=== PATIENT | female | born 1955 | race American Indian/Alaskan Native ===

== ENCOUNTER 2018-12-26 23:03 | Inpatient (IN) | payer MEDICAID, OTHER ==
[2018-12-26 23:16] VITALS: BMI 33.7
[2018-12-26] MEDS ORDERED: Labetalol 500 MG in Sodium Chloride 0.9% 400 ML IV PRN (23:17)
[2018-12-26] MEDS ORDERED: Labetalol 5mg/ml (4ml) IV ONE (23:17)
[2018-12-26] MEDS ORDERED: Labetalol 5mg/ml (4ml) ONE (23:19)
[2018-12-26] MEDS: Nicardipine 20 MG/200 ML 20 MG/200 ML BAG IV PRN (23:42)
--- NOTE | 2018-12-26 23:45 | ED PDOC ---
Arrival/HPI - General Chief Complaint: Weakness/Neurological Deficit Time Seen by Provider: 12/26/18 23:05 Historian: Patient, Family (daughter) - History of Present Illness Narrative History of Present Illness (Text): 12/26/18 23:42 A 63 year old female, whose past medical history includes hypertension (non- compliant with medications for the past year), presents to the emergency department complaining of slurred speech starting 3 days ago. Per daughter, patient sounds like "drunk when talking." Patient denies any headache, chest pain, shortness of breath, any extremity weakness or any other complaints at this time. Past Medical History - Provider Review Nursing Documentation Reviewed: Yes - Infectious Disease Hx of Infectious Diseases: None - Cardiac Hx Hypertension: Yes - Psychiatric Hx Substance Use: No - Anesthesia Hx Anesthesia: No Family/Social History - Physician Review Nursing Documentation Reviewed: Yes Family/Social History: No Known Family HX Smoking Status: Never Smoked Hx Alcohol Use: No Hx Substance Use: No Allergies/Home Meds Allergies/Adverse Reactions: Allergies No Known Allergies Allergy (Verified 12/26/18 23:16) Home Medications: Home Meds Medication Instructions Recorded Confirmed No Known Home Med 12/26/18 12/26/18 Review of Systems - Physician Review All systems were reviewed & negative as marked: Yes - Review of Systems Respiratory: absent: SOB Cardiovascular: absent: Chest Pain Neurological: Speech Changes (slurred, per daughter patient sounds "drunk when talking."). absent: Headache, Other (no arm/leg weakness) Physical Exam Vital Signs Reviewed: Yes Vital Signs Temp Pulse Resp BP Pulse Ox 12/26/18 23:29 84 208/101 H 12/26/18 23:16 98.5 F 117 H 18 259/152 H 97 Temperature: Afebrile Blood Pressure: Hypertensive Pulse: Tachycardic Respiratory Rate: Normal Appearance: Positive for: Well-Appearing, Non-Toxic, Comfortable Pain Distress: None Mental Status: Positive for: Alert and Oriented X 3 Finger Stick Blood Glucose: 122 - Systems Exam Head: Present: Atraumatic, Normocephalic Pupils: Present: PERRL Extroacular Muscles: Present: EOMI Conjunctiva: Present: Normal Mouth: Present: Moist Mucous Membranes Neck: Present: Normal Range of Motion Respiratory/Chest: Present: Clear to Auscultation, Good Air Exchange. No: Respiratory Distress, Accessory Muscle Use Cardiovascular: Present: Tachycardic Abdomen: No: Tenderness, Distention, Peritoneal Signs Back: Present: Normal Inspection Upper Extremity: Present: Normal Inspection. No: Cyanosis, Edema Lower Extremity: Present: Normal Inspection. No: Edema Neurological: Present: GCS=15, CN II-XII Intact, Speech Normal, Motor Func Grossly Intact. No: Other (no motor/focal/sensory deficits) Skin: Present: Warm, Dry, Normal Color. No: Rashes Psychiatric: Present: Alert, Oriented x 3, Normal Insight, Normal Concentration Medical Decision Making ED Course and Treatment: 12/26/18 23:46 Impression: 63 year old female with slurred speech. Plan: -- EKG -- Head CT -- Chest X-ray -- Labs -- Nitroglycerin -- Trandate -- Reassess and disposition Prior Visits: Notes and results from previous visits were reviewed. Progress Notes: 12/27/18 00:58 Chest X-ray shows mass to right lower lobe. 12/27/18 01:[address] banerjee doctor and medical practice administrator. Patient to be admitted to ICU. 12/27/2018 01:[address] IMPRESSION: 1. Age-appropriate cerebellar and cerebral atrophy. 2. Mild chronic microvascular disease. 3. No evidence of acute intracranial pathology. Dictator: Gordon Adkins MD EKG: Ordered, reviewed, and independently interpreted the EKG. Rate : 88 BPM Rhythm : NSR Interpretation : PACs, LVH. Comparison : No previous EKG for comparison. - RAD Interpretation Radiology Orders: 12/26/18 23:16 HEAD W/O CONTRAST [CT] Stat CHEST PORTABLE [RAD] Stat - Medication Orders Current Medication Orders: Nicardipine HCl (Cardene Iv Premix) 20 mg in 200 mls @ 50 mls/hr IV .Q4H PRN; Protocol PRN Reason: TITRATE PER ORDER Discontinued Medications Labetalol HCl (Trandate) 20 mg IV ONCE ONE Stop: 12/26/18 23:18 Last Admin: 12/26/18 23:18 Dose: 20 mg eMAR Start Stop Document 12/26/18 23:18 AD (Rec: 12/26/18 23:30 AD [facility] [id number]) Intravenous Solution Start Date 12/26/18 Start Time 23:18 NIHSS Scale ([place]) Time Performed: 23:15 - How Severe is the Stoke Baseline Level of Consciousness: 0=Alert LOC to Questions: 0=Both comments correct LOC to commands: 0=Obeys both correctly Best Gaze: 0=Normal Visual: 0=No visual loss Facial: 0=Normal Motor Arm - Left: 0=No drift Motor Arm - Right: 0=No drift Motor Leg - Left: 0=No drift Motor Leg - Right: 0=No drift Limb Ataxia: 0=Absent Sensory: 0=Normal Best Language: 0=No aphasia Dysarthia: 0=Normal articulation Extinction & Inattention (Neglect): 0=Normal, no object Score: 0 Risk Level: No Stroke Risk - Scribe Statement The provider has reviewed the documentation as recorded by the Louise Quevedo Provider Scribe Attestation: All medical record entries made by the Rileyibe were at my direction and personally dictated by me. I have reviewed the chart and agree that the record accurately reflects my personal performance of the history, physical exam, medical decision making, and the department course for this patient. I have also personally directed, reviewed, and agree with the discharge instructions and disposition. Disposition/Present on Arrival - Present on Arrival Any Indicators Present on Arrival: No History of DVT/PE: No History of Uncontrolled Diabetes: No Urinary Catheter: No History of Decub. Ulcer: No History Surgical Site Infection Following: None - Disposition Have Diagnosis and Disposition been Completed?: Yes Diagnosis: Hypertensive emergency Disposition: HOSPITALIZED Disposition Time: 01:43 Patient Plan: ICU Patient Problems: Current Active Problems Problem Status Onset Hypertensive emergency Acute Condition: STABLE
[2018-12-26 23:59] LABS: HEMOGLOBIN 14.2 g/dL (12.0-16.0); MEAN CELL VOLUME 74.1 fl (80.0-105.0); MEAN CORPUSCULAR HGB CONC 32.4 g/dl (31.0-37.0); MEAN PLATELET VOLUME 9.9 fl (7.0-11.0); RBC 5.91 10^6/uL (3.5-6.1); RED CELL DISTRIBUTION WIDTH 15.5 % (11.5-14.5); WHITE BLOOD COUNT 14.8 10^3/uL (4.5-11.0)
[2018-12-27 00:03] LABS: INR 1.23; PARTIAL THROMBOPLASTIN TIME 40.8 Seconds (26.9-38.3); PROTHROMBIN TIME 13.7 SECONDS (9.4-12.5)
[2018-12-27 00:10] LABS: ALB/GLOB RATIO 1.1 (1.1-1.8); ALBUMIN 4.6 g/dL (3.0-4.8); ALT/SGPT 10 U/L (7-56); AST/SGOT 26 U/L (14-36); BLOOD UREA NITROGEN 15 mg/dL (7-21); CALCIUM 10.1 mg/dL (8.4-10.5); GFR NON-AFRICAN AMERICAN 56; HDL CHOLESTEROL 46 mg/dL (29-60)
[2018-12-27 00:21] LABS: LDL CHOLESTEROL 117 mg/dL (0-129); TROPONIN I 0.03 ng/mL
[2018-12-27] MEDS ORDERED: Nicardipine 20 MG/200 ML 20 MG/200 ML BAG IV PRN (03:27)
[2018-12-27] MEDS: Nicardipine 20 MG/200 ML 20 MG/200 ML BAG IV PRN ×5 (03:34→09:36)
[2018-12-27] MEDS ORDERED: Potassium Chloride 20 mEq ER Tab PO STA (04:56)
--- NOTE | 2018-12-27 05:01 | CP.PCM.HP ---
History of Present Illness - History of Present Illness History of Present Illness: This 63-year-old -[place] woman was complaining of slurred speech which started on Sunday, has no other complaints. Denied chest pain, shortness of breath, headache, dizziness, nausea, vomiting, palpitation, weakness. She has past medical history of hypertension. EKG-NSR, old inf, ant-sept infarct, LVH. CCT spent 30 minutes. Present on Admission - Present on Admission Any Indicators Present on Admission: No History of DVT/PE: No History of Uncontrolled Diabetes: No Urinary Catheter: No Decubitus Ulcer Present: No History Surgical Site Infection Following: None Review of Systems - Review of Systems All systems: reviewed and no additional remarkable complaints except - Constitutional Constitutional: absent: Headache, Weakness - EENT Eyes: absent: As Per HPI, Blind Spots, Blurred Vision, Change in Vision, Decreased Night Vision, Diplopia, Discharge, Dry Eye, Exophthalmos, Floaters, Irritation, Itchy Eyes, Loss of Peripheral Vision, Pain, Photophobia, Requires Corrective Lenses, Sees Flashes, Spots in Vision, Tunnel Vision, Other Visual Disturbances, Loss of Vision, Other Ears: absent: As Per HPI, Decreased Hearing, Ear Discharge, Ear Pain, Tinnitus, Abnormal Hearing, Disequilibrium, Dizziness, Other Nose/Mouth/Throat: absent: As Per HPI, Epistaxis, Nasal Congestion, Nasal Discharge, Nasal Obstruction, Nasal Trauma, Nose Pain, Post Nasal Drip, Sinus Pain, Sinus Pressure, Bleeding Gums, Change in Voice, Dental Pain, Dry Mouth, Dysphagia, Halitosis, Hoarsness, Lip Swelling, Mouth Lesions, Mouth Pain, Odynophagia, Sore Throat, Throat Swelling, Tongue Swelling, Facial Pain, Neck Pain, Neck Mass, Other - Breasts Breasts: absent: As Per HPI, Change in Shape, Mass, Pain, Nipple Discharge, Nipple Inversion, Skin Changes, Swelling, Other - Cardiovascular Cardiovascular: absent: As Per HPI, Acrocyanosis, Chest Pain, Chest Pain at Rest, Chest Pain with Activity, Claudication, Diaphoresis, Dyspnea, Dyspnea on Exertion, Edema, Irregular Heart Rhythm, Pain Radiating to Arm/Neck/Jaw, Leg Edema, Leg Ulcers, Lightheadedness, Orthopnea, Palpitations, Paroxysmal Nocturnal Dyspnea, Pedal Edema, Radiating Pain, Rapid Heart Rate, Slow Heart Rate, Syncope, Other - Respiratory Respiratory: absent: As Per HPI, Cough, Dyspnea, Hemoptysis, Dyspnea on Exertion, Wheezing, Snoring, Stridor, Pain on Inspiration, Chest Congestion, Excessive Mucous Production, Change in Mucous Color, Pain with Coughing, Other - Gastrointestinal Gastrointestinal: absent: As Per HPI, Abdominal Pain, Belching, Bloating, Change in Bowel Habits, Change in Stool Character, Coffee Ground Emesis, Constipation, Cramping, Diarrhea, Dyspepsia, Dysphagia, Early Satiety, Excessive Flatus, Fecal Incontinence, Heartburn, Hematemesis, Hematochezia, Loose Stools, Melena, Nausea, Odynophagia, Temesmus, Vomiting, Other - Genitourinary Genitourinary: absent: As Per HPI, Change in Urinary Stream, Difficulty Urinating, Dysuria, Flank Pain, Hematuria, Pyuria, Nocturia, Urinary Incontinence, Urinary Frequency, Urinary Hesitance, Urinary Urgency, Voiding Freq/Small Amts, Freq UTI, Hx Renal/Bladder Calculi, Hx /Renal Surgery, Bladder Distension, Other - Reproductive: Female Reproductive:Female: absent: As Per HPI, Amenorrhea, Amenorrhea/ Control, Currently Menstual, Cycle <21 Days, Cycle >35 Days, Cycle Variable, Menses 1-7 Days, Menses >/= 8 Days, Menses Variable, Cycle > 4 Weeks Between, No Menses for 6 Months, Heavy Menses, Light Menses, Normal Menses, Spotting Between Cycles, S/P Hysterectomy, Menopausal, Post Menopausal, Premenarche, Abnormal Vaginal Bleeding, Dysmenorrhea, Dyspareunia, Genital Lesions, Genital Pruritis, Pelvic Pain, Prolapse Symptoms, Sexual Dysfunction, Vaginal Discharge, Vaginal Dryness, Vaginal Odor, Vaginal Pruritis, Other - Menstruation Menstruation: absent: As Per HPI, Amenorrhea, Amenorrhea/ Control, Currently Menstual, Cycle <21 Days, Cycle >35 Days, Cycle Variable, Menses 1-7 Days, Menses >/= 8 Days, Menses Variable, Cycle > 4 Weeks Between, No Menses for 6 Months, Heavy Menses, Light Menses, Normal Menses, Spotting Between Cycles, S/P Hysterectomy, Menopausal, Post Menopausal, Premenarche, Abnormal Vaginal Bleeding, Dysmenorrhea, Other - Musculoskeletal Musculoskeletal: absent: As Per HPI, Abnormal Gait, Arthralgias, Atrophy, Back Pain, Deformity, Joint Swelling, Limited Range of Motion, Loss of Height, Muscle Cramps, Muscle Weakness, Myalgias, Neck Pain, Numbness, Radiating Pain into Limb, Stiffness, Tingling, Other - Integumentary Integumentary: absent: As Per HPI, Acne, Alopecia, Bleeding Lesions, Change in Hair, Change in Nails, Change in Pigmentation, Changing Lesions, Dry Skin, Erythema, Furuncle, Hirsutism, Lesions, New Lesions, Non-Healing Lesions, Photosensitivity, Pruritus, Rash, Skin Pain, Skin Ulcer, Sores, Striae, Swellin g, Unusual Bruising, Wounds, Jaundice, Other - Neurological Neurological: Abnormal Speech - Psychiatric Psychiatric: absent: As Per HPI, Abnormal Sleep Pattern, Anhedonia, Anxiety, Auditory Hallucinations, Behavioral Changes, Change in Appetite, Change in Libido, Confusion, Depression, Difficulty Concentrating, Hallucinations, Homicidal Ideation, Hopelessness, Irritability, Memory Loss, Mood Swings, Panic Attacks, Paranoia, Suicidal Ideation, Visual Hallucinations, Tactile Hallucinations, Other - Endocrine Endocrine: absent: As Per HPI, Change in Body Appearance, Change in Libido, Cold Intolorance, Deepening of Voice, Excessive Sweating, Fatigue, Flushing, Heat Intolorance, Increase in Ring/Shoe/Hat Size, Palpitations, Polydipsia, Polyphagia, Polyuria, Other - Hematologic/Lymphatic Hematologic: absent: As Per HPI, Easy Bleeding, Easy Bruising, Lymphadenopathy, Other Past Patient History - Infectious Disease Hx of Infectious Diseases: None - Tetanus Immunizations Tetanus Immunization: Unknown - Past Medical History & Family History Past Medical History?: Yes - Past Social History Smoking Status: Never Smoked Chewing Tobacco Use: No Cigar Use: No Alcohol: None Drugs: Denies Domestic Violence: Negative - CARDIAC Hx Cardiac Disorders: Yes Hx Hypertension: Yes - PULMONARY Hx Respiratory Disorders: No - NEUROLOGICAL Hx Neurological Disorder: No - HEENT Hx HEENT Problems: No - RENAL Hx Chronic Kidney Disease: No - ENDOCRINE/METABOLIC Hx Endocrine Disorders: No - HEMATOLOGICAL/ONCOLOGICAL Hx Blood Disorders: No - INTEGUMENTARY Hx Dermatological Problems: No - MUSCULOSKELETAL/RHEUMATOLOGICAL Hx Musculoskeletal Disorders: No Hx Falls: No Other/Comment: BL Knee replacement - GASTROINTESTINAL Hx Gastrointestinal Disorders: No - GENITOURINARY/GYNECOLOGICAL Hx Genitourinary Disorders: No - PSYCHIATRIC Hx Psychophysiologic Disorder: No - SURGICAL HISTORY Hx Surgeries: No - ANESTHESIA Hx Anesthesia: No Meds Allergies/Adverse Reactions: Allergies Allergy/AdvReac Type Severity Reaction Status Date / Time No Known Allergies Allergy Verified 12/26/18 23:16 Physical Exam - Constitutional Appears: Well, No Acute Distress - Head Exam Head Exam: ATRAUMATIC, NORMAL INSPECTION, NORMOCEPHALIC - Eye Exam Eye Exam: Normal appearance - ENT Exam ENT Exam: Normal External Ear Exam - Neck Exam Neck exam: Positive for: Normal Inspection - Respiratory Exam Respiratory Exam: NORMAL BREATHING PATTERN - Cardiovascular Exam Cardiovascular Exam: +S1 (Normal.), +S2 (Normal.). absent: JVD - GI/Abdominal Exam GI & Abdominal Exam: Normal Bowel Sounds - Rectal Exam Rectal Exam: Deferred - Exam Additional comments: Deferred. - Extremities Exam Extremities exam: Positive for: normal inspection - Back Exam Back exam: NORMAL INSPECTION - Neurological Exam Neurological exam: Alert, Oriented x3 - Psychiatric Exam Psychiatric exam: Normal Affect, Normal Mood - Skin Skin Exam: Normal Color Results - Vital Signs Recent Vital Signs: Last Vital Signs Temp 98.5 F 12/26/18 23:16 Pulse 91 H 12/27/18 03:00 Resp 22 12/27/18 04:04 BP 178/82 H 12/27/18 03:00 Pulse Ox 100 12/27/18 03:00 - Labs Result Diagrams: 12/30/18 07:00 12/30/18 07:00 Labs: Laboratory Results - last 24 hr 12/26/18 12/26/18 12/26/18 23:25 23:25 23:25 WBC 14.8 H RBC 5.91 Hgb 14.2 Hct 43.8 MCV 74.1 L MCH 24.0 L MCHC 32.4 RDW 15.5 H Plt Count 398 MPV 9.9 PT 13.7 H INR 1.23 APTT 40.8 H Sodium 141 Potassium 3.3 L Chloride 102 Carbon Dioxide 26 Anion Gap 15 BUN 15 Creatinine 1.0 Est GFR ( Amer) > 60 Est GFR (Non-Af Amer) 56 Random Glucose 118 H Calcium 10.1 Total Bilirubin 0.5 AST 26 ALT 10 Alkaline Phosphatase 126 Lactate Dehydrogenase 641 Total Creatine Kinase 47 Troponin I 0.03 Total Protein 8.8 H Albumin 4.6 Globulin 4.2 Albumin/Globulin Ratio 1.1 Triglycerides 78 Cholesterol 205 H LDL Cholesterol Direct 117 HDL Cholesterol 46 - EKG Data EKG Interpreted by: Myself EKG shows normal: Sinus rhythm Rate: Normal - EKG Data EKG comments: Old anterior infarct,LVH. - Imaging and Cardiology CT scan - head Status: Report reviewed by me (NAD) Chest x-ray Status: Image reviewed by me (No active disease.) Assessment & Plan - Assessment and Plan (Free Text) Assessment: Slurred speech Hypertensive emergency Hypertension HLD Hypokalelmia Plan: Admit to ICU . Monitor BP. Cardene drip. Low sodium diet. GI prophylaxis. DVT prophylaxis. Labs in AM. - Date & Time Date: 12/30/18 Time: 22:31
[2018-12-27] MEDS: Pantoprazole 40 mg EC Tab PO SCH (05:14)
[2018-12-27 05:46] LABS: URINE BILIRUBIN NEGATIVE (NEGATIVE); URINE BLOOD TRACE-LYSED (NEGATIVE); URINE GLUCOSE (UA) NEGATIVE (NEGATIVE); URINE LEUKOCYTE ESTERASE NEGATIVE Leu/uL (NEGATIVE); URINE PROTEIN 30 mg/dL (<30 mg/dL); URINE UROBILINOGEN 0.2 E.U./dL (<1 E.U./dL)
[2018-12-27 05:47] LABS: URINE APPEARANCE CLEAR (CLEAR); URINE COLOR YELLOW (YELLOW)
[2018-12-27 05:58] LABS: URINE BACTERIA RARE /hpf; URINE RBC 0 - 2 /hpf (0-2); URINE WBC 0 - 2 /hpf (0-6)
[2018-12-27 07:11] LABS: BASO # 0.01 K/mm3 (0.0-2.0); BASO % 0.1 % (0.0-3.0); EOS % 0.2 % (1.5-5.0); HEMOGLOBIN 13.2 g/dL (12.0-16.0); LYMPH # 1.8 (1.2-3.4); LYMPH % 13.7 % (22.0-35.0); MEAN CELL VOLUME 74.1 fl (80.0-105.0); MEAN CORPUSCULAR HGB CONC 32.4 g/dl (31.0-37.0); MEAN PLATELET VOLUME 9.9 fl (7.0-11.0); MONO # 0.8 (0.1-0.6); MONO % 6.4 % (1.0-6.0); RBC 5.49 10^6/uL (3.5-6.1); RED CELL DISTRIBUTION WIDTH 15.4 % (11.5-14.5)
[2018-12-27 07:51] LABS: ALB/GLOB RATIO 1.1 (1.1-1.8); ALT/SGPT < 6 U/L (7-56); AST/SGOT 28 U/L (14-36); BLOOD UREA NITROGEN 13 mg/dL (7-21); CALCIUM 9.6 mg/dL (8.4-10.5); GFR NON-AFRICAN AMERICAN > 60
[2018-12-27] MEDS: Enoxaparin 40 mg Syringe SC SCH (09:36)
--- NOTE | 2018-12-27 09:42 | RAD ---
Date of service: 12/26/2018 HISTORY: slurred speech COMPARISON: No prior. FINDINGS: LUNGS: No active pulmonary disease. There is a 3.9 cm mass at the right lung base and a 3 cm mass in the left lung base. The patient inform the x-ray tech that these findings have been present since childhood. There are no prior studies at this institution PLEURA: No significant pleural effusion identified, no pneumothorax apparent. CARDIOVASCULAR: Aortic calcification Mild cardiomegaly no pulmonary vascular congestion. OSSEOUS STRUCTURES: No significant abnormalities. VISUALIZED UPPER ABDOMEN: Normal. OTHER FINDINGS: None. IMPRESSION: No active disease. See comments
--- NOTE | 2018-12-27 10:56 | CARD ---
APPROVED REPORT Date of service: 12/26/2018 EKG Measurement Heart [id number] <Conclusion> Sinus rhythm with premature atrial complexes Left ventricular hypertrophy with repolarization abnormality Inferior infarct, age Old Anteroseptal infarct, age Old.
--- NOTE | 2018-12-27 10:59 | CT ---
Date of service: 12/27/2018 PROCEDURE: CT HEAD WITHOUT CONTRAST. HISTORY: slurred speech COMPARISON: None available. TECHNIQUE: Axial computed tomography images were obtained through the head/brain without intravenous contrast. Radiation dose: Total exam DLP = 851.05 mGy-cm. This CT exam was performed using one or more of the following dose reduction techniques: Automated exposure control, adjustment of the mA and/or kV according to patient size, and/or use of iterative reconstruction technique. FINDINGS: HEMORRHAGE: No intracranial hemorrhage. BRAIN: No mass effect or edema. Severe chronic microvascular changes are seen in the basal ganglia and periventricular white matter. VENTRICLES: Unremarkable. No hydrocephalus. CALVARIUM: Unremarkable. PARANASAL SINUSES: Unremarkable as visualized. No significant inflammatory changes. MASTOID AIR CELLS: Unremarkable as visualized. No inflammatory changes. OTHER FINDINGS: The report concurs with the preliminary [facility] report IMPRESSION: No acute intracranial findings
--- NOTE | 2018-12-27 11:49 | CP.PCM.CON ---
History of Present Illness - History of Present Illness History of Present Illness: Neurology Consultation Note: Consult requested by Dr. Barrios Mrs. Shin is a 63-year-old woman with a past medical history of uncontrolled hypertension who presented to the ED for slurred speech that has been ongoing for 3 days. SBP was in the 200's range. CT scan of the head showed chronic bilateral subcortical lacunar infarcts, but no acute findings. She was not a candidate for IV tPA due to being well outside the time window. Review of Systems - Constitutional Constitutional: As Per HPI - EENT Eyes: absent: As Per HPI, Blind Spots, Blurred Vision, Change in Vision, Decreased Night Vision, Diplopia, Discharge, Dry Eye, Exophthalmos, Floaters, Irritation, Itchy Eyes, Loss of Peripheral Vision, Pain, Photophobia, Requires Corrective Lenses, Sees Flashes, Spots in Vision, Tunnel Vision, Other Visual Disturbances, Loss of Vision, Other Ears: absent: As Per HPI, Decreased Hearing, Ear Discharge, Ear Pain, Tinnitus, Abnormal Hearing, Disequilibrium, Dizziness, Other Nose/Mouth/Throat: absent: As Per HPI, Epistaxis, Nasal Congestion, Nasal Discharge, Nasal Obstruction, Nasal Trauma, Nose Pain, Post Nasal Drip, Sinus Pain, Sinus Pressure, Bleeding Gums, Change in Voice, Dental Pain, Dry Mouth, Dysphagia, Halitosis, Hoarsness, Lip Swelling, Mouth Lesions, Mouth Pain, Odynophagia, Sore Throat, Throat Swelling, Tongue Swelling, Facial Pain, Neck Pain, Neck Mass, Other - Cardiovascular Cardiovascular: As Per HPI - Respiratory Respiratory: absent: As Per HPI, Cough, Dyspnea, Hemoptysis, Dyspnea on Exertion, Wheezing, Snoring, Stridor, Pain on Inspiration, Chest Congestion, Excessive Mucous Production, Change in Mucous Color, Pain with Coughing, Other - Gastrointestinal Gastrointestinal: absent: As Per HPI, Abdominal Pain, Belching, Bloating, Change in Bowel Habits, Change in Stool Character, Coffee Ground Emesis, Constipation, Cramping, Diarrhea, Dyspepsia, Dysphagia, Early Satiety, Excessive Flatus, Fecal Incontinence, Heartburn, Hematemesis, Hematochezia, Loose Stools, Melena, Nausea, Odynophagia, Temesmus, Vomiting, Other - Musculoskeletal Musculoskeletal: absent: As Per HPI, Abnormal Gait, Arthralgias, Atrophy, Back Pain, Deformity, Joint Swelling, Limited Range of Motion, Loss of Height, Muscle Cramps, Muscle Weakness, Myalgias, Neck Pain, Numbness, Radiating Pain into Limb, Stiffness, Tingling, Other - Integumentary Integumentary: absent: As Per HPI, Acne, Alopecia, Bleeding Lesions, Change in Hair, Change in Nails, Change in Pigmentation, Changing Lesions, Dry Skin, Erythema, Furuncle, Hirsutism, Lesions, New Lesions, Non-Healing Lesions, Photosensitivity, Pruritus, Rash, Skin Pain, Skin Ulcer, Sores, Striae, Swelling, Unusual Bruising, Wounds, Jaundice, Other - Neurological Neurological: As Per HPI - Psychiatric Psychiatric: absent: As Per HPI, Abnormal Sleep Pattern, Anhedonia, Anxiety, Auditory Hallucinations, Behavioral Changes, Change in Appetite, Change in Libido, Confusion, Depression, Difficulty Concentrating, Hallucinations, Homicidal Ideation, Hopelessness, Irritability, Memory Loss, Mood Swings, Panic Attacks, Paranoia, Suicidal Ideation, Visual Hallucinations, Tactile Hallucinations, Other - Endocrine Endocrine: absent: As Per HPI, Change in Body Appearance, Change in Libido, Cold Intolorance, Deepening of Voice, Excessive Sweating, Fatigue, Flushing, Heat Intolorance, Increase in Ring/Shoe/Hat Size, Palpitations, Polydipsia, Polyphagia, Polyuria, Other - Hematologic/Lymphatic Hematologic: absent: As Per HPI, Easy Bleeding, Easy Bruising, Lymphadenopathy, Other Past Patient History - Infectious Disease Hx of Infectious Diseases: None - Past Social History Smoking Status: Never Smoked - CARDIAC Hx Cardiac Disorders: Yes Hx Hypertension: Yes - PULMONARY Hx Respiratory Disorders: No - NEUROLOGICAL Hx Neurological Disorder: No - HEENT Hx HEENT Problems: No - RENAL Hx Chronic Kidney Disease: No - ENDOCRINE/METABOLIC Hx Endocrine Disorders: No - HEMATOLOGICAL/ONCOLOGICAL Hx Blood Disorders: No - INTEGUMENTARY Hx Dermatological Problems: No - MUSCULOSKELETAL/RHEUMATOLOGICAL Hx Musculoskeletal Disorders: No Hx Falls: No Other/Comment: BL Knee replacement - GASTROINTESTINAL Hx Gastrointestinal Disorders: No - GENITOURINARY/GYNECOLOGICAL Hx Genitourinary Disorders: No - PSYCHIATRIC Hx Psychophysiologic Disorder: No - SURGICAL HISTORY Hx Surgeries: No - ANESTHESIA Hx Anesthesia: No Meds Allergies/Adverse Reactions: Allergies Allergy/AdvReac Type Severity Reaction Status Date / Time No Known Allergies Allergy Verified 12/26/18 23:16 - Medications Medications: Current Medications Amlodipine Besylate (Norvasc) 10 mg PO DAILY [facility] Last Admin: 12/27/18 08:33 Dose: 10 mg Clonidine HCl (Catapres) 0.1 mg PO TID [facility] Last Admin: 12/27/18 10:26 Dose: 0.1 mg Enoxaparin Sodium (Lovenox) 40 mg SC DAILY [facility]; Protocol Last Admin: 12/27/18 09:36 Dose: 40 mg Nicardipine HCl (Cardene Iv Premix) 20 mg in 200 mls @ 50 mls/hr IV .Q4H PRN; Protocol PRN Reason: TITRATE PER MD ORDER Last Admin: 12/27/18 09:36 Dose: 15 mg/hr, 150 mls/hr Pantoprazole Sodium (Protonix Ec Tab) 40 mg PO 0600 [facility] Last Admin: 12/27/18 05:14 Dose: 40 mg Valsartan (Diovan) 320 mg PO DAILY [facility] Last Admin: 12/27/18 08:30 Dose: 320 mg Physical Exam - Constitutional Appears: Well - Head Exam Head Exam: ATRAUMATIC, NORMAL INSPECTION, NORMOCEPHALIC - Eye Exam Eye Exam: EOMI, Normal appearance, PERRL Pupil Exam: NORMAL ACCOMODATION, PERRL - ENT Exam ENT Exam: Mucous Membranes Moist, Normal Exam - Neck Exam Neck exam: Positive for: Normal Inspection - Respiratory Exam Respiratory Exam: Clear to Auscultation Bilateral, NORMAL BREATHING PATTERN - Cardiovascular Exam Cardiovascular Exam: REGULAR RHYTHM, +S1, +S2 - GI/Abdominal Exam GI & Abdominal Exam: Normal Bowel Sounds, Soft. absent: Tenderness - Extremities Exam Extremities exam: Positive for: normal inspection - Back Exam Back exam: NORMAL INSPECTION - Neurological Exam Neurological exam: Alert, CN II-XII Intact, Normal Gait, Oriented x3, Reflexes Normal Additional comments: Speech was dysarthric, right facial droop noted. Pronator drift noted on the left and weakness/pain in left shoulder, plantar responses equivocal. - Psychiatric Exam Psychiatric exam: Normal Affect, Normal Mood - Skin Skin Exam: Dry, Intact, Normal Color, Warm Results - Vital Signs Recent Vital Signs: Last Vital Signs Temp 98.6 F 12/27/18 04:00 Pulse 89 12/27/18 10:26 Resp 25 H 12/27/18 08:30 BP 196/57 H 12/27/18 10:26 Pulse Ox 99 12/27/18 08:30 - Labs Result Diagrams: 12/27/18 06:55 12/27/18 06:55 Labs: Laboratory Results - last 24 hr 12/26/18 12/26/18 12/26/18 23:09 23:25 23:25 WBC RBC Hgb Hct MCV MCH MCHC RDW Plt Count MPV Neut % (Auto) Lymph % (Auto) [place] % (Auto) Eos % (Auto) Baso % (Auto) Lymph # (Auto) [place] # (Auto) Eos # (Auto) Baso # (Auto) Absolute Neuts (auto) PT 13.7 H INR 1.23 APTT 40.8 H Sodium 141 Potassium 3.3 L Chloride 102 Carbon Dioxide 26 Anion Gap 15 BUN 15 Creatinine 1.0 Est GFR ( Amer) > 60 Est GFR (Non-Af Amer) 56 POC Glucose (mg/dL) 122 H Random Glucose 118 H Calcium 10.1 Phosphorus Magnesium Total Bilirubin 0.5 AST 26 ALT 10 Alkaline Phosphatase 126 Lactate Dehydrogenase 641 Total Creatine Kinase 47 Troponin I 0.03 Total Protein 8.8 H Albumin 4.6 Globulin 4.2 Albumin/Globulin Ratio 1.1 Triglycerides 78 Cholesterol 205 H LDL Cholesterol Direct 117 HDL Cholesterol 46 Free T4 TSH 3rd Generation Urine Color Urine Appearance Urine pH Ur Specific [place] Urine Protein Urine Glucose (UA) Urine Ketones Urine Blood Urine Nitrate Urine Bilirubin Urine Urobilinogen Ur Leukocyte Esterase Urine RBC Urine WBC Ur Epithelial Cells Urine Bacteria 12/26/18 12/27/18 12/27/18 23:25 04:30 06:55 WBC 14.8 H RBC 5.91 Hgb 14.2 Hct 43.8 MCV 74.1 L MCH 24.0 L MCHC 32.4 RDW 15.5 H Plt Count 398 MPV 9.9 Neut % (Auto) Lymph % (Auto) [place] % (Auto) Eos % (Auto) Baso % (Auto) Lymph # (Auto) [place] # (Auto) Eos # (Auto) Baso # (Auto) Absolute Neuts (auto) PT INR APTT Sodium 139 Potassium 3.8 Chloride 103 Carbon Dioxide 29 Anion Gap 11 BUN 13 Creatinine 0.9 Est GFR ( Amer) > 60 Est GFR (Non-Af Amer) > 60 POC Glucose (mg/dL) Random Glucose 148 H Calcium 9.6 Phosphorus 3.9 Magnesium 2.0 Total Bilirubin 0.4 AST 28 ALT < 6 L Alkaline Phosphatase 98 Lactate Dehydrogenase Total Creatine Kinase Troponin I Total Protein 7.7 Albumin 4.0 Globulin 3.7 Albumin/Globulin Ratio 1.1 Triglycerides Cholesterol LDL Cholesterol Direct HDL Cholesterol Free T4 TSH 3rd Generation Urine Color Yellow Urine Appearance Clear Urine pH 7.0 Ur Specific [place] 1.010 Urine Protein 30 H Urine Glucose (UA) Negative Urine Ketones Negative Urine Blood Trace-lysed H Urine Nitrate Negative Urine Bilirubin Negative Urine Urobilinogen 0.2 Ur Leukocyte Esterase Negative Urine RBC 0 - 2 Urine WBC 0 - 2 Ur Epithelial Cells 1 - 3 Urine Bacteria Rare 12/27/18 12/27/18 12/27/18 06:55 06:55 08:26 WBC 13.0 H RBC 5.49 Hgb 13.2 Hct 40.7 MCV 74.1 L MCH 24.0 L MCHC 32.4 RDW 15.4 H Plt Count 332 MPV 9.9 Neut % (Auto) 79.6 H Lymph % (Auto) 13.7 L [place] % (Auto) 6.4 H Eos % (Auto) 0.2 L Baso % (Auto) 0.1 Lymph # (Auto) 1.8 [place] # (Auto) 0.8 H Eos # (Auto) 0.0 Baso # (Auto) 0.01 Absolute Neuts (auto) 10.39 H PT INR APTT Sodium Potassium Chloride Carbon Dioxide Anion Gap BUN Creatinine Est GFR ( Amer) Est GFR (Non-Af Amer) POC Glucose (mg/dL) Random Glucose Calcium Phosphorus Magnesium Total Bilirubin AST ALT Alkaline Phosphatase Lactate Dehydrogenase Total Creatine Kinase Troponin I Total Protein Albumin Globulin Albumin/Globulin Ratio Triglycerides Cholesterol LDL Cholesterol Direct HDL Cholesterol Free T4 2.00 TSH 3rd Generation < 0.02 L Urine Color Urine Appearance Urine pH Ur Specific [place] Urine Protein Urine Glucose (UA) Urine Ketones Urine Blood Urine Nitrate Urine Bilirubin Urine Urobilinogen Ur Leukocyte Esterase Urine RBC Urine WBC Ur Epithelial Cells Urine Bacteria Assessment & Plan (1) Dysarthria Assessment and Plan: This could be due to chronic infarcts and hypertensive emergency, or may be due to new subacute stroke. On exam, there is also some left side weakness. This may represent a subacute brainstem stroke. The patient's chronic strokes appear to be hypertensive in origin, but a stroke work-up is warranted. I recommend the followin. Telemetry 2. MRI brain without contrast, and MRA of the head/neck without contrast 3. Echocardiogram with bubble study 4. Check HbA1c, lipid panel, B12, folate, TSH, homocysteine, vitamin D levels 5. May normalize BP now 6. PT/OT eval and treatment 7. Aspirin 81 mg daily 8. Lipitor 40 mg daily 9. Case management consult Thank you for this consultation. Status: Acute
[2018-12-27] MEDS ORDERED: Iohexol 350 MG/100 ML VIAL ONE (12:25)
--- NOTE | 2018-12-27 13:12 | CP.PCM.PN ---
Subjective - Date & Time of Evaluation Date of Evaluation: 12/27/18 Time of Evaluation: 07:30 - Subjective Subjective: Pt seen and examined on rounds, report no major complaints currently. Objective - Vital Signs/Intake and Output Vital Signs (last 24 hours): Temp Pulse Resp BP Pulse Ox 98.6 F 89 25 H 196/57 H 99 12/27/18 04:00 12/27/18 10:26 12/27/18 08:30 12/27/18 10:26 12/27/18 08:30 Intake and Output: 12/27/18 12/27/18 06:59 18:59 Intake Total 1050 400 Output Total 350 Balance 700 400 - Medications Medications: Current Medications Amlodipine Besylate (Norvasc) 10 mg PO DAILY [facility] Last Admin: 12/27/18 08:33 Dose: 10 mg Aspirin (Aspirin Chewable) 81 mg PO DAILY [facility] Atorvastatin Calcium (Lipitor) 40 mg PO DIN [facility] Clonidine HCl (Catapres) 0.1 mg PO TID [facility] Last Admin: 12/27/18 10:26 Dose: 0.1 mg Enoxaparin Sodium (Lovenox) 40 mg SC DAILY [facility]; Protocol Last Admin: 12/27/18 09:36 Dose: 40 mg Nicardipine HCl (Cardene Iv Premix) 20 mg in 200 mls @ 50 mls/hr IV .Q4H PRN; Protocol PRN Reason: TITRATE PER MD ORDER Last Admin: 12/27/18 09:36 Dose: 15 mg/hr, 150 mls/hr Pantoprazole Sodium (Protonix Ec Tab) 40 mg PO 0600 [facility] Last Admin: 12/27/18 05:14 Dose: 40 mg Valsartan (Diovan) 320 mg PO DAILY [facility] Last Admin: 12/27/18 08:30 Dose: 320 mg - Labs Labs: 12/27/18 06:55 12/27/18 06:55 PT 13.7 SECONDS (9.4-12.5) H 12/26/18 23:25 INR 1.23 12/26/18 23:25 APTT 40.8 Seconds (26.9-38.3) H 12/26/18 23:25 - Constitutional Appears: Non-toxic, No Acute Distress - Head Exam Head Exam: NORMAL INSPECTION - Eye Exam Eye Exam: Normal appearance - ENT Exam ENT Exam: Mucous Membranes Moist - Neck Exam Neck Exam: Full ROM - Respiratory Exam Respiratory Exam: Clear to Ausculation Bilateral, NORMAL BREATHING PATTERN - Cardiovascular Exam Cardiovascular Exam: REGULAR RHYTHM, +S1, +S2 - GI/Abdominal Exam GI & Abdominal Exam: Soft, Normal Bowel Sounds - Extremities Exam Extremities Exam: Full ROM, Normal Inspection - Back Exam Back Exam: NORMAL INSPECTION - Neurological Exam Neurological Exam: Alert, Awake, Oriented x3 - Psychiatric Exam Psychiatric exam: Normal Affect - Skin Skin Exam: Normal Color, Warm Assessment and Plan - Assessment and Plan (Free Text) Assessment: Pt is 63yo female with PMHx HTN, uncontrolled, non compliant with meds, presented with slurred speech, and HTN urgency Currently afebrile, with elevated SBP 170s, on Cardene drip, started to transition to PO, started on Norvasc, Losartan, and Clonidine Pt has hx of non compliance, has been off BP meds for >1y due to insurance social issues Neurology consulted, recs appreciated HTN Urgency Slurred speech Recommend: - supp o2 as needed, duonebs PRN - NO ID issues - BP control, goal MAP reduction by no more than 25% in first 24hr - start norvasc, Losartan, Clonidine, - Titrate off Cardene - ECHO - ASA - Check HgbA1C, Lipid Panel, thyroid panel - Statin - Neurology follow up - GI ppx - DVT ppx - Monitor in ICU
--- NOTE | 2018-12-27 14:06 | CT ---
Date of service: 12/27/2018 PROCEDURE: CT Chest with and without contrast HISTORY: RLL mass COMPARISON: None available. TECHNIQUE: Contiguous axial images were obtained through the chest with intravenous contrast enhancement. Sagittal and coronal reconstructions were performed. IV contrast: 100 cc of Omni 350 Radiation dose: Total exam DLP = 1645.48 mGy-cm. This CT exam was performed using one or more of the following dose reduction techniques: Automated exposure control, adjustment of the mA and/or kV according to patient size, and/or use of iterative reconstruction technique. FINDINGS: LUNGS: There is a 30 x 35 mm smooth contoured mass at the right lung base. There is a heavily calcified 27 x 40 mm mass at the left lung base adjacent to the aorta. Multiple 5 mm nodules bilateral nodules are seen suspicious for metastatic disease MEDIASTINUM: Unremarkable thoracic aorta. No aneurysm or dissection. Normal sized heart. Main pulmonary artery unremarkable. No vascular congestion. No lymphadenopathy. Aortic and coronary artery calcifications. PLEURA: No pleural fluid. No pneumothorax. BONES: No fracture. No destructive lesion. UPPER ABDOMEN: Grossly unremarkable. OTHER FINDINGS: None. IMPRESSION: There is a 30 x 35 mm smooth contoured mass at the right lung base. There is a heavily calcified 27 x 40 mm mass at the left lung base adjacent to the aorta. Multiple 5 mm nodules bilateral nodules are seen suspicious for metastatic disease
--- NOTE | 2018-12-27 17:43 | CARD ---
APPROVED REPORT Date of service: 12/27/2018 EXAM: Two-dimensional and M-mode echocardiogram with Doppler and color Doppler. INDICATION CODE STROKE/BUBBLE STUDY 2D DIMENSIONS Left Atrium (2D)5.5 (1.6-4.0cm)IVSd1.5 (0.7-1.1cm) LVDd4.6 (3.9-5.9cm)PWd1.7 (0.7-1.1cm) LVDs3.0 (2.5-4.0cm)FS (%) 34.8 % LVEF (%)64.0 (>50%) M-Mode DIMENSIONS Aortic Root3.00 (2.2-3.7cm)Aortic Cusp Exc.1.60 (1.5-2.0cm) Aortic Valve AoV Peak Aulolxhl544.0cm/sAoV VTI58.9cmAO Peak GR.36mmHg LVOT Peak Srdfqmhw951.0cm/sLVOT VTI33.90cmAO Mean GR.21mmHg Mitral Valve MV E Guowyijg77.9cm/sMV A Lkylllyy909.0cm/sMV DII05sl E/A ratio0.6MVA (PHT)2.27cm2 TDI Lateral E' Peak V4.97cm/sMedial E' Peak V5.26cm/sE/Lateral E'18.5 E/Medial E'17.5 Pulmonary Valve PV Peak Xziqbztm681.0cm/sPV Peak Grad.5mmHg Tricuspid Valve TR Peak Upfakgde524ot/sRAP [id number] Peak Gr.47mmHg [id number] LEFT VENTRICLE The left ventricle is normal size. There is moderate to severe concentric left ventricular hypertrophy. Asymmetric Septal Hypertrophy. The left ventricular function is normal. The left ventricular ejection fraction is within the normal range.Ej.Fr: 65%. RIGHT VENTRICLE The right ventricle is normal size. The right ventricular systolic function is normal. ATRIA The left atrium is mildly dilated. The right atrium size is normal. AORTIC VALVE Aortic Valve shows Sclerosis. Valve Opening Normal. MITRAL VALVE The mitral valve is normal in structure. TRICUSPID VALVE The tricuspid valve is normal in structure. There is moderate tricuspid regurgitation.RVSP: 57mm Hg.M oderate Pulmonary HBypertension. PERICARDIAL EFFUSION There is no pericardial effusion. <Conclusion> The left ventricle is normal size. There is moderate to severe concentric left ventricular hypertrophy. The left ventricular function is normal. LV Ej.Fr: 65%. LV shows Moderate Diastolic Dydfunction. Asymmetric Septal Hypertrophy. The right ventricle is normal size. The right ventricular systolic function is normal. The left atrium is mildly dilated. The right atrium size is normal. Aortic Valve shows Sclerosis. Valve Opening Normal. The mitral valve is normal in structure. Mild Mitral Regurge. The tricuspid valve is normal in structure. There is moderate tricuspid regurgitation.RVSP: 57mm Hg.M oderate Pulmonary Hypertension.
[2018-12-27] MEDS: Saliva Substitute 44.3 ML PO PRN (18:02)
[2018-12-27 18:10] LABS: FOLATE > 20.0 ng/mL
--- NOTE | 2018-12-27 18:19 | MRI ---
Date of service: 12/27/2018 PROCEDURE: Magnetic Resonance Angiography Brain HISTORY: stroke COMPARISON: None available. TECHNIQUE: 3D time of flight MR angiography of the intracranial arteries was performed. Rotating maximum intensity projection images were generated. FINDINGS: INTERNAL CAROTID ARTERIES: Unremarkable. The skull base, petrous, cavernous and supraclinoid segments are bilaterally widely patient. ANTERIOR CEREBRAL ARTERIES: Unremarkable. A1 and A2 segments are widely patent. Smaller distal branches unremarkable, as visualized. MIDDLE CEREBRAL ARTERIES: Unremarkable. M1 and M2 segments are widely patent. Perisylvian branches grossly symmetric. POSTERIOR CIRCULATION: Basilar Artery: Unremarkable. Distal Vertebral Arteries: Unremarkable. Posterior Cerebral Arteries: Unremarkable. Posterior Inferior Cerebellar Arteries: Unremarkable. ANEURYSM/ VASCULAR MALFORMATIONS: None. OTHER FINDINGS: None. IMPRESSION: Unremarkable MR angiography of the brain.
--- NOTE | 2018-12-27 18:23 | MRI ---
Date of service: 12/27/2018 PROCEDURE: MR Angiography of the neck without contrast HISTORY: stroke COMPARISON: None available. TECHNIQUE: 3D [id number] angiography of the neck was performed. Rotating maximum intensity projection images of the cervical carotid and vertebral arteries were generated. The origins of the common carotid arteries were not visualized, which is a limitation inherent to the non-contrast time of flight technique. FINDINGS: RIGHT CAROTID ARTERIES: Common Carotid Artery: Normal. Carotid Bifurcation: Normal. Internal Carotid Artery:No significant stenosis identified. External Carotid Artery (proximal branches): Normal. LEFT CAROTID ARTERIES: Common Carotid Artery: Normal. Carotid Bifurcation: Normal. Internal Carotid Artery:No significant stenosis identified. External Carotid Artery (proximal branches): Normal. VERTEBRAL ARTERIES: The cervical vertebral arteries appear generally patent but are lost in signal intensity distally through what may be a technical air. High-grade stenosis of the distal bilateral vertebral arteries not completely excluded. Consider follow-up CT angiography if clinically warranted. OTHER FINDINGS: None. IMPRESSION: A significant stenosis of the distal bilateral vertebral arteries difficult to completely exclude due to technical artifact. Bilateral common and internal carotid arteries appear widely patent.
--- NOTE | 2018-12-27 18:28 | MRI ---
Date of service: 12/27/2018 PROCEDURE: MRI BRAIN WITHOUT CONTRAST HISTORY: stroke COMPARISON: None available. TECHNIQUE: Multiplanar, multisequence MR images of the brain were obtained without intravenous contrast enhancement. FINDINGS: HEMORRHAGE: None DWI: A small infarct identified the left lexa anteriorly. No lobar brain infarction throughout the brain. BRAIN PARENCHYMA: There is extensive white matter abnormality throughout the brain and although the corpus callosum appears generally unaffected, bandlike pattern is oriented perpendicular to the plane of the ventricles are suspicious for potential demyelination. Clinically correlate. There is no mass effect. Midline brain anatomy is unremarkable exclusive of the lexa. There is no suspicious extra-axial collection appreciated. VENTRICLES: Unremarkable. No hydrocephalus. CRANIUM: Unremarkable. ORBITS: Grossly unremarkable. PARANASAL SINUSES/MASTOIDS: Clear VASCULAR SYSTEM: Skull base flow voids intact. OTHER FINDINGS: None. IMPRESSION: 1. Small acute or subacute infarct left lexa. 2. There is likely extensive chronic microangiopathy which may be intermixed with demyelination in the cerebral white matter, as discussed above. Clinically correlate further. No prior brain MRI available for comparison.
[2018-12-28] MEDS: Pantoprazole 40 mg EC Tab PO SCH (06:07)
[2018-12-28] MEDS: Saliva Substitute 44.3 ML PO PRN ×2 (06:10→14:05)
[2018-12-28 06:23] LABS: HEMOGLOBIN 12.8 g/dL (12.0-16.0); MEAN CELL VOLUME 74.6 fl (80.0-105.0); MEAN CORPUSCULAR HEMOGLOBIN 23.6 pg (25.0-35.0); MEAN CORPUSCULAR HGB CONC 31.6 g/dl (31.0-37.0); MEAN PLATELET VOLUME 10.1 fl (7.0-11.0); RBC 5.43 10^6/uL (3.5-6.1); RED CELL DISTRIBUTION WIDTH 15.9 % (11.5-14.5); WHITE BLOOD COUNT 11.8 10^3/uL (4.5-11.0)
[2018-12-28 06:31] LABS: ALB/GLOB RATIO 1.1 (1.1-1.8); ALBUMIN 3.8 g/dL (3.0-4.8); ALT/SGPT < 6 U/L (7-56); AST/SGOT 20 U/L (14-36); BLOOD UREA NITROGEN 14 mg/dL (7-21); CALCIUM 9.4 mg/dL (8.4-10.5); GFR NON-AFRICAN AMERICAN 50
[2018-12-28] MEDS: Enoxaparin 40 mg Syringe SC SCH ×2 (08:12→09:07)
[2018-12-28 09:36] LABS: T3 1.43 ng/mL (0.97-1.69)
--- NOTE | 2018-12-28 11:57 | CP.PCM.PN ---
<Gwyn Liu - Last Filed: 12/28/18 12:37> Subjective - Date & Time of Evaluation Date of Evaluation: 12/28/18 Time of Evaluation: 11:54 - Subjective Subjective: PGY-[address] medicine progress note for Dr Barrios No acute events noted overnight. Patient stated she felt much better compared to when she arrived. She denied chest pain, sob, bleeding, abd pain, n/v, d/c, f/c. She denied new focal deficits and stated that her speech has improved since arrival. Objective - Vital Signs/Intake and Output Vital Signs (last 24 hours): Temp Pulse Resp BP Pulse Ox 98.9 F 82 24 197/95 H 99 12/27/18 23:17 12/28/18 10:00 12/27/18 18:50 12/28/18 08:12 12/27/18 18:50 - Medications Medications: Current Medications Amlodipine Besylate (Norvasc) 10 mg PO DAILY [facility] Last Admin: 12/28/18 09:08 Dose: Not Given Aspirin (Aspirin Chewable) 81 mg PO DAILY [facility] Last Admin: 12/28/18 09:06 Dose: Not Given Atorvastatin Calcium (Lipitor) 40 mg PO DIN [facility] Last Admin: 12/27/18 17:48 Dose: 40 mg Clonidine HCl (Catapres) 0.1 mg PO TID [facility] Last Admin: 12/28/18 09:06 Dose: Not Given Cyanocobalamin (Vitamin B12 1000 Mcg/Ml Inj) 1,000 mcg IM DAILY [facility] Stop: 12/30/18 10:01 Last Admin: 12/28/18 09:08 Dose: 1,000 mcg Enoxaparin Sodium (Lovenox) 40 mg SC DAILY [facility]; Protocol Last Admin: 12/28/18 09:07 Dose: Not Given Hydrochlorothiazide (Hydrodiuril) 25 mg PO DAILY [facility] Last Admin: 12/28/18 09:06 Dose: 25 mg Nicardipine HCl (Cardene Iv Premix) 20 mg in 200 mls @ 50 mls/hr IV .Q4H PRN; Protocol PRN Reason: TITRATE PER MD ORDER Last Titration: 12/27/18 13:30 Dose: 0 mg/hr, 0 mls/hr Pantoprazole Sodium (Protonix Ec Tab) 40 mg PO 0600 [facility] Last Admin: 12/28/18 06:07 Dose: 40 mg Saliva Substitute (Saliva Substitute) 0 ml PO TID PRN PRN Reason: Dry mouth Last Admin: 12/28/18 06:10 Dose: 1 ml Valsartan (Diovan) 320 mg PO DAILY [facility] Last Admin: 12/28/18 09:08 Dose: 320 mg - Labs Labs: 12/28/18 05:30 12/28/18 05:30 PT 13.7 SECONDS (9.4-12.5) H 12/26/18 23:25 INR 1.23 12/26/18 23:25 APTT 40.8 Seconds (26.9-38.3) H 12/26/18 23:25 - Constitutional Appears: Well, Non-toxic, No Acute Distress - Head Exam Head Exam: ATRAUMATIC, NORMAL INSPECTION - Eye Exam Eye Exam: EOMI, Normal appearance, PERRL. absent: Scleral icterus - ENT Exam ENT Exam: Mucous Membranes Moist - Neck Exam Neck Exam: Full ROM, Normal Inspection - Respiratory Exam Respiratory Exam: Clear to Ausculation Bilateral. absent: Rales, Rhonchi, W heezes - Cardiovascular Exam Cardiovascular Exam: Tachycardia, REGULAR RHYTHM, +S1, +S2. absent: JVD, Murmur - GI/Abdominal Exam GI & Abdominal Exam: Soft, Normal Bowel Sounds. absent: Tenderness - Extremities Exam Extremities Exam: Full ROM - Neurological Exam Neurological Exam: Alert, Awake, CN II-XII Intact, Oriented x3. absent: Motor S ensory Deficit Neuro motor strength exam: Left Upper Extremity: 5, Right Upper Extremity: 5, Left Lower Extremity: 5, Right Lower Extremity: 5 - Psychiatric Exam Psychiatric exam: Normal Affect, Normal Mood - Skin Skin Exam: Dry, Intact, Normal Color, Warm Assessment and Plan - Assessment and Plan (Free Text) Plan: Mrs Shin is a 63 year old female with a PMHx of uncontrolled HTN non-adherent to home medications due to insurance issues who presented to the ED for slurred speech that has been ongoing for 3 days. SBP was found to be in the 200's range: #Dysarthria, Improved #Left-Sided Weakness, Improved #Acute or Subacute Left Lexa Infarct -MRI brain showed acute or subacute infarct left lexa -CT scan of the head showed chronic bilateral subcortical lacunar infarcts, but no acute findings -MRA head unremarkable -MRA neck showed stenosis distal b/l vertebral arteries -not a candidate for IV tPA due to being well outside the time window -ALINING INSPECTOR recommends regular consistency diet w/ thin liquids and aspiration precautions -continue aspirin 81mg po qd and lipitor 40mg po din -PT/OT eval and treatment -neurology consulted, Dr Stone #Uncontrolled Hypertension -nicardipine drip now discontinued -per neurology, okay to normalize BP now -continue clonidine 0.1mg po tid, hctz 25mg po qd, valsartan 320mg po qd, amlodipine 10mg po qd, lopressor 25mg po bid -all anti-hypertensives with holding parameters #Diastolic CHF #Severe LVH -echo showed severe LVH and moderate pulmonary HTN -start lopressor 25mg po bid -continue valsartan 320mg po qd #Possible Vertebral Artery Stenosis -MRA neck showed significant stenosis of distal bilateral vertebral arteries difficult to completely exclude due to technical artifact -will discuss with neurology to see if CT angiography is warranted -lipid panel was normal #Hyperthyroidism -TSH low <0.02 and T4 elevated at 11.7 -repeat TSH and we will then consider pharmacotherapy + endocrinology eval #Low Vitamin D -vitamin D 25-OH low <12.8 -start vitamin D 2000IU qd #PPX -lovenox 40mg sc qd and protonix 40mg po qd Seen and discussed with Dr Barrios <Reyna Barrios - Last Filed: 12/28/18 13:12> Objective - Vital Signs/Intake and Output Vital Signs (last 24 hours): Temp Pulse Resp BP Pulse Ox 98.9 F 82 24 197/95 H 99 12/27/18 23:17 12/28/18 10:00 12/27/18 18:50 12/28/18 08:12 12/27/18 18:50 - Medications Medications: Current Medications Amlodipine Besylate (Norvasc) 10 mg PO DAILY [facility] Aspirin (Aspirin Chewable) 81 mg PO DAILY [facility] Last Admin: 12/28/18 09:06 Dose: Not Given Atorvastatin Calcium (Lipitor) 40 mg PO DIN [facility] Last Admin: 12/27/18 17:48 Dose: 40 mg Cholecalciferol (Vitamin D) 2,000 intlu PO DAILY [facility] Clonidine HCl (Catapres) 0.1 mg PO TID [facility] Cyanocobalamin (Vitamin B12 1000 Mcg/Ml Inj) 1,000 mcg IM DAILY [facility] Stop: 12/30/18 10:01 Last Admin: 12/28/18 09:08 Dose: 1,000 mcg Enoxaparin Sodium (Lovenox) 40 mg SC DAILY [facility]; Protocol Last Admin: 12/28/18 09:07 Dose: Not Given Hydrochlorothiazide (Hydrodiuril) 25 mg PO DAILY [facility] Nicardipine HCl (Cardene Iv Premix) 20 mg in 200 mls @ 50 mls/hr IV .Q4H PRN; Protocol PRN Reason: TITRATE PER MD ORDER Last Titration: 12/27/18 13:30 Dose: 0 mg/hr, 0 mls/hr Metoprolol Tartrate (Lopressor) 25 mg PO 0800,1800 [facility] Pantoprazole Sodium (Protonix Ec Tab) 40 mg PO 0600 [facility] Last Admin: 12/28/18 06:07 Dose: 40 mg Saliva Substitute (Saliva Substitute) 0 ml PO TID PRN PRN Reason: Dry mouth Last Admin: 12/28/18 06:10 Dose: 1 ml Valsartan (Diovan) 320 mg PO DAILY [facility] - Labs Labs: 12/28/18 05:30 12/28/18 05:30 PT 13.7 SECONDS (9.4-12.5) H 12/26/18 23:25 INR 1.23 12/26/18 23:25 APTT 40.8 Seconds (26.9-38.3) H 12/26/18 23:25 Attending/Attestation - Attestation I have personally seen and examined this patient.: Yes I have fully participated in the care of the patient.: Yes I have reviewed all pertinent clinical information, including history, physical exam and plan: Yes Notes (Text): 12/28/18 13:01 63 year old female with past medical history of hypertension which noncompliance to home medications due to loss of insurance who presented with slurred speech and hypertensive urgency. She was started on nicardipine drip initially. Currently on clonidine, valsartan, norvasc and lopressor. Also started on HCTZ today. Patient was counselled on medication compliance. CT head showed chronic bilateral subcortical lacunar infarcts, not acute findings. MRI brain showed acute or subacute left lexa infarct. MRA head/neck showed ?stenosis distal bilateral vertebral arteries. CTA head/neck is ordered. Neurology is following. Patient is on aspirin and statin. PT evaluation is requested. Patient was also found to have 30 x 35 mm smooth contoured mass at right lung base, heavily calcified 27 x 40 mm at the left lung base and multiple 5 mm bilateral nodules suspicious for metastatic disease. Findings were discussed with the patient. Pulmonary is following; IR evaluation is requested to evaluate for possible biopsy. TSH is low with normal free T4. Repeat TSH was ordered. Reyna Barrios MD Hospitalist.
[2018-12-28] MEDS ORDERED: Iohexol 350 MG/100 ML VIAL ONE (13:10)
--- NOTE | 2018-12-28 16:05 | CP.PCM.PN ---
Subjective - Date & Time of Evaluation Date of Evaluation: 12/28/18 Time of Evaluation: 16:01 - Subjective Subjective: Neurology Progress Note: Mrs. Shin was seen and examined today in the ICU. She continues to have dysarthria, but slightly improved. MRI brain showed the left pontine ischemic stroke. MRA of the head/neck showed possible bilateral vertebral artery stenosis, but could have been artifact. The patient is stable clinically and is able to swallow normally and was able to ambulate this morning. There were no acute events overnight. Objective - Vital Signs/Intake and Output Vital Signs (last 24 hours): Temp Pulse Resp BP Pulse Ox 98.9 F 108 H 24 189/103 H 99 12/27/18 23:17 12/28/18 14:05 12/27/18 18:50 12/28/18 14:05 12/27/18 18:50 - Medications Medications: Current Medications Amlodipine Besylate (Norvasc) 10 mg PO DAILY [facility] Aspirin (Aspirin Chewable) 81 mg PO DAILY [facility] Last Admin: 12/28/18 09:06 Dose: Not Given Atorvastatin Calcium (Lipitor) 40 mg PO DIN [facility] Last Admin: 12/27/18 17:48 Dose: 40 mg Cholecalciferol (Vitamin D) 2,000 intlu PO DAILY [facility] Clonidine HCl (Catapres) 0.1 mg PO TID [facility] Last Admin: 12/28/18 14:05 Dose: 0.1 mg Cyanocobalamin (Vitamin B12 1000 Mcg/Ml Inj) 1,000 mcg IM DAILY [facility] Stop: 12/30/18 10:01 Last Admin: 12/28/18 09:08 Dose: 1,000 mcg Enoxaparin Sodium (Lovenox) 40 mg SC DAILY [facility]; Protocol Last Admin: 12/28/18 09:07 Dose: Not Given Hydrochlorothiazide (Hydrodiuril) 25 mg PO DAILY [facility] Nicardipine HCl (Cardene Iv Premix) 20 mg in 200 mls @ 50 mls/hr IV .Q4H PRN; Protocol PRN Reason: TITRATE PER MD ORDER Last Titration: 12/27/18 13:30 Dose: 0 mg/hr, 0 mls/hr Metoprolol Tartrate (Lopressor) 25 mg PO 0800,1800 [facility] Pantoprazole Sodium (Protonix Ec Tab) 40 mg PO 0600 [facility] Last Admin: 12/28/18 06:07 Dose: 40 mg Saliva Substitute (Saliva Substitute) 0 ml PO TID PRN PRN Reason: Dry mouth Last Admin: 12/28/18 14:05 Dose: 1 ml Valsartan (Diovan) 320 mg PO DAILY [facility] - Labs Labs: 12/28/18 05:30 12/28/18 05:30 PT 13.7 SECONDS (9.4-12.5) H 12/26/18 23:25 INR 1.23 12/26/18 23:25 APTT 40.8 Seconds (26.9-38.3) H 12/26/18 23:25 - Constitutional Appears: Well - Head Exam Head Exam: ATRAUMATIC, NORMAL INSPECTION, NORMOCEPHALIC - Eye Exam Eye Exam: EOMI, Normal appearance, PERRL Pupil Exam: NORMAL ACCOMODATION, PERRL - ENT Exam ENT Exam: Mucous Membranes Moist, Normal Exam - Neck Exam Neck Exam: Full ROM, Normal Inspection. absent: Lymphadenopathy - Respiratory Exam Respiratory Exam: Clear to Ausculation Bilateral, NORMAL BREATHING PATTERN - Cardiovascular Exam Cardiovascular Exam: REGULAR RHYTHM, +S1, +S2. absent: Murmur - GI/Abdominal Exam GI & Abdominal Exam: Soft, Normal Bowel Sounds. absent: Tenderness - Extremities Exam Extremities Exam: Full ROM, Normal Capillary Refill, Normal Inspection. absent: Joint Swelling, Pedal Edema - Back Exam Back Exam: NORMAL INSPECTION - Neurological Exam Neurological Exam: Abnormal Gait, Alert, Awake, CN II-XII Intact, Oriented x3 Neuro motor strength exam: Left Upper Extremity: 4, Right Upper Extremity: 4, Left Lower Extremity: 4, Right Lower Extremity: 4 Additional comments: Dysarthric. NIHSS = 2 - Psychiatric Exam Psychiatric exam: Normal Affect, Normal Mood - Skin Skin Exam: Dry, Intact, Normal Color, Warm Assessment and Plan (1) Acute ischemic stroke Assessment & Plan: MRI showed the left paramedian pontine ischemic stroke. This is likely due to small vessel disease involvement of the basilar perforators, but it could also be due to vertebral artery involvement. The MRA showed bilateral vertebral artery stenosis, but this may not be accurate. I recommend CTA of the head/neck for further evaluation. Continue current medications for secondary stroke prevention. Status: Acute
--- NOTE | 2018-12-28 16:45 | CT ---
Date of service: 12/28/2018 PROCEDURE: CT Angiography of the neck and brain HISTORY: Severe stenosis seen on neck MRA w/o contrast COMPARISON: Comparison made with MRA neck 12/27/2018. TECHNIQUE: Contiguous axial images of the neck were obtained from the level of the vertex of the skull to the superior mediastinum in the arteriographic phase of enhancement. Coronal and sagittal reformats or also generated. IV contrast dose: 96 cc Omnipaque 350 Radiation dose: Total exam DLP = 510.49 mGy-cm. This CT exam was performed using one or more of the following dose reduction techniques: Automated exposure control, adjustment of the mA and/or kV according to patient size, and/or use of iterative reconstruction technique. FINDINGS: The aortic arch widely patent despite some minimal calcified atherosclerotic plaque. Minor calcified atherosclerotic plaque seen at the origin of the right common carotid artery. Minimal calcified plaque seen at the proximal left internal carotid artery. Slightly more significant plaque seen at the right carotid bifurcation and origin of the right common carotid artery. Changes result in approximately 40% diameter narrowing at the origin of the right internal carotid artery. The visualized distal internal carotid arteries including the petrous cavernous and supraclinoid segments are patent however there are minor partially calcified atherosclerotic plaque changes seen at both carotid siphons. The vertebral arteries are patent throughout, right-sided which is only minimally larger in caliber/more dominant than the left side. Basilar artery patent as well. The visualized major branches of the [id number] are patent. Distal branches of the anterior middle and posterior cerebral arteries are patent and relatively symmetric so far as can be seen. No evidence of large aneurysm nor vascular malformation. OTHER FINDINGS: Small focal area polypoid like mucosal thickening and or mucous retention cyst formation left maxillary antrum. IMPRESSION: There appears to be approximately 40 % diameter stenosis right proximal aspect right internal carotid artery.
[2018-12-29] MEDS: Pantoprazole 40 mg EC Tab PO SCH (05:15)
[2018-12-29 08:20] LABS: HEMOGLOBIN 12.7 g/dL (12.0-16.0); MEAN CELL VOLUME 74.9 fl (80.0-105.0); MEAN CORPUSCULAR HEMOGLOBIN 23.6 pg (25.0-35.0); MEAN CORPUSCULAR HGB CONC 31.5 g/dl (31.0-37.0); MEAN PLATELET VOLUME 9.7 fl (7.0-11.0); RBC 5.38 10^6/uL (3.5-6.1); RED CELL DISTRIBUTION WIDTH 15.9 % (11.5-14.5); WHITE BLOOD COUNT 8.2 10^3/uL (4.5-11.0)
[2018-12-29 08:35] LABS: ALB/GLOB RATIO 1.1 (1.1-1.8); ALBUMIN 3.9 g/dL (3.0-4.8); ALT/SGPT < 6 U/L (7-56); AST/SGOT 17 U/L (14-36); BLOOD UREA NITROGEN 18 mg/dL (7-21); CALCIUM 9.7 mg/dL (8.4-10.5); GFR NON-AFRICAN AMERICAN 41
[2018-12-29] MEDS: Enoxaparin 40 mg Syringe SC SCH (09:44)
[2018-12-29] MEDS: Cholecalciferol 1,000 INTLU TAB PO SCH (09:46)
[2018-12-29] MEDS ORDERED: Sodium Chloride 0.9% 1,000 ML IV STA (11:05)
--- NOTE | 2018-12-29 12:07 | CP.PCM.PN ---
<Alfred Madsen - Last Filed: 12/29/18 12:03> Subjective - Date & Time of Evaluation Date of Evaluation: 12/29/18 Time of Evaluation: 12:03 - Subjective Subjective: Alfred Madsen, PGY-1, Internal Medicine Progress Note for Dr. Barrios Patient seen and examined at bedside. Patient had no acute overnight events. Patient was hypertensive overnight and this morning with last blood pressure 190/98. Patient was given stat dose of clonidine for elevated blood pressure overnight. However, patient does not complain of any acute symptoms at this time. 12-point ROS was unremarkable except for what was mentioned above. Objective - Vital Signs/Intake and Output Vital Signs (last 24 hours): Temp Pulse Resp BP Pulse Ox 98.5 F 66 18 190/98 H 99 12/29/18 04:00 12/29/18 09:45 12/29/18 04:00 12/29/18 09:46 12/29/18 04:00 Intake and Output: 12/29/18 12/29/18 06:59 18:59 Intake Total 850 Output Total 1 Balance 849 - Medications Medications: Current Medications Amlodipine Besylate (Norvasc) 10 mg PO DAILY [facility] Last Admin: 12/29/18 09:46 Dose: 10 mg Aspirin (Aspirin Chewable) 81 mg PO DAILY [facility] Last Admin: 12/29/18 09:46 Dose: 81 mg Atorvastatin Calcium (Lipitor) 40 mg PO DIN [facility] Last Admin: 12/28/18 17:40 Dose: 40 mg Cholecalciferol (Vitamin D) 2,000 intlu PO DAILY [facility] Last Admin: 12/29/18 09:46 Dose: 2,000 intlu Clonidine HCl (Catapres) 0.1 mg PO TID [facility] Last Admin: 12/29/18 09:45 Dose: 0.1 mg Cyanocobalamin (Vitamin B12 1000 Mcg/Ml Inj) 1,000 mcg IM DAILY [facility] Stop: 12/30/18 10:01 Last Admin: 12/29/18 09:42 Dose: 1,000 mcg Enoxaparin Sodium (Lovenox) 40 mg SC DAILY [facility]; Protocol Last Admin: 12/29/18 09:44 Dose: 40 mg Hydralazine HCl (Apresoline) 10 mg IVP Q6 PRN PRN Reason: Systolic Blood Pressure Hydrochlorothiazide (Hydrodiuril) 25 mg PO DAILY [facility] Last Admin: 12/29/18 09:45 Dose: 25 mg Nicardipine HCl (Cardene Iv Premix) 20 mg in 200 mls @ 50 mls/hr IV .Q4H PRN; Protocol PRN Reason: TITRATE PER MD ORDER Last Titration: 12/27/18 13:30 Dose: 0 mg/hr, 0 mls/hr Sodium Chloride (Sodium Chloride 0.45%) 1,000 mls @ 75 mls/hr IV .[id number] [facility] Metoprolol Tartrate (Lopressor) 25 mg PO 0800,1800 [facility] Last Admin: 12/29/18 08:27 Dose: 25 mg Pantoprazole Sodium (Protonix Ec Tab) 40 mg PO 0600 [facility] Last Admin: 12/29/18 05:15 Dose: 40 mg Saliva Substitute (Saliva Substitute) 0 ml PO TID PRN PRN Reason: Dry mouth Last Admin: 12/28/18 14:05 Dose: 1 ml Valsartan (Diovan) 320 mg PO DAILY [facility] Last Admin: 12/29/18 09:46 Dose: 320 mg - Labs Labs: 12/29/18 07:00 12/29/18 07:00 PT 13.7 SECONDS (9.4-12.5) H 12/26/18 23:25 INR 1.23 12/26/18 23:25 APTT 40.8 Seconds (26.9-38.3) H 12/26/18 23:25 - Constitutional Appears: Well, Non-toxic, No Acute Distress - Head Exam Head Exam: ATRAUMATIC, NORMAL INSPECTION, NORMOCEPHALIC - Eye Exam Eye Exam: EOMI, PERRL - Neck Exam Neck Exam: Full ROM - Respiratory Exam Respiratory Exam: Clear to Ausculation Bilateral, NORMAL BREATHING PATTERN - Cardiovascular Exam Cardiovascular Exam: REGULAR RHYTHM, RRR - GI/Abdominal Exam GI & Abdominal Exam: Soft, Normal Bowel Sounds. absent: Tenderness - Extremities Exam Extremities Exam: Full ROM - Neurological Exam Neurological Exam: Alert, Awake, CN II-XII Intact, Oriented x3 - Psychiatric Exam Psychiatric exam: Normal Affect, Normal Mood Assessment and Plan - Assessment and Plan (Free Text) Assessment: 63 year old female with a PMHx of uncontrolled HTN non-adherent to home medications due to insurance issues who presented to the ED for slurred speech that has been ongoing for 3 days. Systolic blood pressure was found to be in the 200's range and MRI showed acute lexa infarct Plan: Acute left lexa infarct -MRI showed left lexa infarct -MRA of head was unremarkable -Head and neck CTA showed 40% stenosis right proximal aspect of right internal carotid artery -Not a candidate for tPA -Continue aspirin and lipitor -Patient has steady gait walking 100 ft and has done well with physical therapy. Patient's speech and swallow has been improving as per speech therapist and started on regular consistency diet with thin liquids and aspiration precautions. -Continue with physical therapy and speech and swallow evaluation follow up -Continue with aspiration precautions Hypertensive emergency -Patient had slurred speech upon presentation with severely elevated blood pressure over 200s -Continue with norvasc, clonidine, HCTZ, lopressor, valsartan -Started with hydralazine PRN for SBP>160 and DBP>110 VALDO -Creatinine: 1.3 -Continue with gentle hydration Pulmonary nodules -Chest CT showed 30x35 mm RLL. 27x40 mass in LLL. likely metastatic disease -Will follow up with Abdominal CT with contrast for evaluation for metastasis. Will optimize patient by treating VALDO with gentle fluid hydration prior to CT -IR, Dr. Rosales, consulted for further recommendations Diastolic CHF -Echocardiogram: LVEF: 64%, moderate diastolic dysfunction -Continue with lopressor and valsartan Hyperthyroidism -TSH low at 0.02 and T4 increased to 11.7 -Repeat TSH was still <0.02 -Methimazole 5 mg daily was started today Vitamin D deficiency -Vitamin D was <12.8 on this admission -Continue with cholecalciferol 2000 U daily Vitamin B12 deficiency -Vitamin B12 was within normal limits -Continue with Vitamin B12 supplementation GI prophylaxis: protonix 40 mg daily DVT prophylaxis: lovenox 40 mg daily Patient plan was discussed with attending. <Reyna Barrios - Last Filed: 12/29/18 12:51> Objective - Vital Signs/Intake and Output Vital Signs (last 24 hours): Temp Pulse Resp BP Pulse Ox 98.4 F 60 18 196/81 H 99 12/29/18 12:00 12/29/18 12:17 12/29/18 12:00 12/29/18 12:17 12/29/18 04:00 Intake and Output: 12/29/18 12/29/18 06:59 18:59 Intake Total 850 Output Total 1 Balance 849 - Medications Medications: Current Medications Amlodipine Besylate (Norvasc) 10 mg PO DAILY [facility] Last Admin: 12/29/18 09:46 Dose: 10 mg Aspirin (Aspirin Chewable) 81 mg PO DAILY [facility] Last Admin: 12/29/18 09:46 Dose: 81 mg Atorvastatin Calcium (Lipitor) 40 mg PO DIN [facility] Last Admin: 12/28/18 17:40 Dose: 40 mg Cholecalciferol (Vitamin D) 2,000 intlu PO DAILY [facility] Last Admin: 12/29/18 09:46 Dose: 2,000 intlu Clonidine HCl (Catapres) 0.1 mg PO TID [facility] Last Admin: 12/29/18 09:45 Dose: 0.1 mg Cyanocobalamin (Vitamin B12 1000 Mcg/Ml Inj) 1,000 mcg IM DAILY [facility] Stop: 12/30/18 10:01 Last Admin: 12/29/18 09:42 Dose: 1,000 mcg Enoxaparin Sodium (Lovenox) 40 mg SC DAILY [facility]; Protocol Last Admin: 12/29/18 09:44 Dose: 40 mg Hydralazine HCl (Apresoline) 10 mg IVP Q6 PRN PRN Reason: Systolic Blood Pressure Last Admin: 12/29/18 12:17 Dose: 10 mg Hydrochlorothiazide (Hydrodiuril) 25 mg PO DAILY [facility] Last Admin: 12/29/18 09:45 Dose: 25 mg Nicardipine HCl (Cardene Iv Premix) 20 mg in 200 mls @ 50 mls/hr IV .Q4H PRN; Protocol PRN Reason: TITRATE PER MD ORDER Last Titration: 12/27/18 13:30 Dose: 0 mg/hr, 0 mls/hr Sodium Chloride (Sodium Chloride 0.45%) 1,000 mls @ 75 mls/hr IV .[id number] [facility] Last Admin: 12/29/18 12:14 Dose: 75 mls/hr Methimazole (Tapazole) 5 mg PO DAILY [facility] Metoprolol Tartrate (Lopressor) 25 mg PO 0800,1800 [facility] Last Admin: 12/29/18 08:27 Dose: 25 mg Pantoprazole Sodium (Protonix Ec Tab) 40 mg PO 0600 [facility] Last Admin: 12/29/18 05:15 Dose: 40 mg Saliva Substitute (Saliva Substitute) 0 ml PO TID PRN PRN Reason: Dry mouth Last Admin: 12/28/18 14:05 Dose: 1 ml Valsartan (Diovan) 320 mg PO DAILY [facility] Last Admin: 12/29/18 09:46 Dose: 320 mg - Labs Labs: 12/29/18 07:00 12/29/18 07:00 PT 13.7 SECONDS (9.4-12.5) H 12/26/18 23:25 INR 1.23 12/26/18 23:25 APTT 40.8 Seconds (26.9-38.3) H 12/26/18 23:25 Attending/Attestation - Attestation I have personally seen and examined this patient.: Yes I have fully participated in the care of the patient.: Yes I have reviewed all pertinent clinical information, including history, physical exam and plan: Yes Notes (Text): 12/29/18 12:47 63 year old female with past medical history of hypertension which noncompliance to home medications due to loss of insurance who presented with slurred speech and hypertensive urgency. She was started on nicardipine drip initially. Currently on clonidine, valsartan, HTCZ, norvasc and lopressor. Also started on hydralazine prn. Patient was counselled on medication compliance. CT head showed chronic bilateral subcortical lacunar infarcts, not acute findings. MRI brain showed acute or subacute left lexa infarct. MRA head/neck showed ?stenosis distal bilateral vertebral arteries. CTA head/neck showed 40% proximal right ICA stenosis. Neurology is following. Patient is on aspirin and statin. PT evaluation was also appreciated; recommended TCU. Patient was also found to have 30 x 35 mm smooth contoured mass at right lung base, heavily calcified 27 x 40 mm at the left lung base and multiple 5 mm bilateral nodules suspicious for metastatic disease. Findings were discussed with the patient and daughter as well. Pulmonary is following; IR evaluation is requested to evaluate for possible biopsy. Will also obtain CT abd/pelvis to evaluation for any malignancy/mass. Gentle hydration started for mild Valdo. Reyna Barrios MD Hospitalist.
[2018-12-29] MEDS: Sodium Chloride 0.45% 1,000 ML IV SCH (12:14)
[2018-12-29] MEDS ORDERED: Barium Sulfate Susp 2.1% w/v, 2.0% w/w 450 mL Bottle PO ONE (14:20)
[2018-12-29] MEDS: methIMAzole 5 MG TAB PO SCH (14:31)
--- NOTE | 2018-12-29 15:35 | CP.PCM.PN ---
Subjective - Date & Time of Evaluation Date of Evaluation: 12/29/18 Time of Evaluation: 15:33 - Subjective Subjective: Neurology progress note: Mrs. Shin was seen and examined today at bedside. She was doing well with speech therapy. There were no acute events overnight. Her blood pressure remains difficult to control despite multiple new medications added by the primary team. Objective - Vital Signs/Intake and Output Vital Signs (last 24 hours): Temp Pulse Resp BP Pulse Ox 98.4 F 82 18 196/95 H 99 12/29/18 12:00 12/29/18 14:31 12/29/18 12:00 12/29/18 14:31 12/29/18 04:00 Intake and Output: 12/29/18 12/29/18 06:59 18:59 Intake Total 850 Output Total 1 Balance 849 - Medications Medications: Current Medications Amlodipine Besylate (Norvasc) 10 mg PO DAILY [facility] Last Admin: 12/29/18 09:46 Dose: 10 mg Aspirin (Aspirin Chewable) 81 mg PO DAILY [facility] Last Admin: 12/29/18 09:46 Dose: 81 mg Atorvastatin Calcium (Lipitor) 40 mg PO DIN [facility] Last Admin: 12/28/18 17:40 Dose: 40 mg Cholecalciferol (Vitamin D) 2,000 intlu PO DAILY [facility] Last Admin: 12/29/18 09:46 Dose: 2,000 intlu Clonidine HCl (Catapres) 0.1 mg PO TID [facility] Last Admin: 12/29/18 14:31 Dose: 0.1 mg Cyanocobalamin (Vitamin B12 1000 Mcg/Ml Inj) 1,000 mcg IM DAILY [facility] Stop: 12/30/18 10:01 Last Admin: 12/29/18 09:42 Dose: 1,000 mcg Enoxaparin Sodium (Lovenox) 40 mg SC DAILY [facility]; Protocol Last Admin: 12/29/18 09:44 Dose: 40 mg Hydralazine HCl (Apresoline) 10 mg IVP Q6 PRN PRN Reason: Systolic Blood Pressure Last Admin: 12/29/18 12:17 Dose: 10 mg Hydrochlorothiazide (Hydrodiuril) 25 mg PO DAILY [facility] Last Admin: 12/29/18 09:45 Dose: 25 mg Nicardipine HCl (Cardene Iv Premix) 20 mg in 200 mls @ 50 mls/hr IV .Q4H PRN; Protocol PRN Reason: TITRATE PER MD ORDER Last Titration: 12/27/18 13:30 Dose: 0 mg/hr, 0 mls/hr Sodium Chloride (Sodium Chloride 0.45%) 1,000 mls @ 75 mls/hr IV .[id number] [facility] Last Admin: 12/29/18 12:14 Dose: 75 mls/hr Methimazole (Tapazole) 5 mg PO DAILY [facility] Last Admin: 12/29/18 14:31 Dose: 5 mg Metoprolol Tartrate (Lopressor) 25 mg PO 0800,1800 [facility] Last Admin: 12/29/18 08:27 Dose: 25 mg Pantoprazole Sodium (Protonix Ec Tab) 40 mg PO 0600 [facility] Last Admin: 12/29/18 05:15 Dose: 40 mg Saliva Substitute (Saliva Substitute) 0 ml PO TID PRN PRN Reason: Dry mouth Last Admin: 12/28/18 14:05 Dose: 1 ml Valsartan (Diovan) 320 mg PO DAILY [facility] Last Admin: 12/29/18 09:46 Dose: 320 mg - Labs Labs: 12/29/18 07:00 12/29/18 07:00 PT 13.7 SECONDS (9.4-12.5) H 12/26/18 23:25 INR 1.23 12/26/18 23:25 APTT 40.8 Seconds (26.9-38.3) H 12/26/18 23:25 - Neurological Exam Neurological Exam: Awake, CN II-XII Intact, Normal Gait, Oriented x3, Reflexes Normal Neuro motor strength exam: Left Upper Extremity: 5, Right Upper Extremity: 5, Left Lower Extremity: 5, Right Lower Extremity: 5 Additional comments: slight dysarthria remains notable: NIHSS = 1 Assessment and Plan (1) Acute ischemic stroke Assessment & Plan: Continue current medical management for secondary stroke prevention and normalize BP per the primary team recommendations. Status: Acute
[2018-12-29] MEDS ORDERED: Iohexol 350 MG/100 ML VIAL ONE (16:05)
[2018-12-30] MEDS: Sodium Chloride 0.45% 1,000 ML IV SCH ×2 (01:59→04:19)
[2018-12-30] MEDS: Pantoprazole 40 mg EC Tab PO SCH (06:11)
[2018-12-30 07:58] LABS: HEMOGLOBIN 13.6 g/dL (12.0-16.0); MEAN CELL VOLUME 74.2 fl (80.0-105.0); MEAN CORPUSCULAR HEMOGLOBIN 23.9 pg (25.0-35.0); MEAN CORPUSCULAR HGB CONC 32.2 g/dl (31.0-37.0); RBC 5.7 10^6/uL (3.5-6.1); RED CELL DISTRIBUTION WIDTH 15.8 % (11.5-14.5); WHITE BLOOD COUNT 9.8 10^3/uL (4.5-11.0)
[2018-12-30 08:27] LABS: ALB/GLOB RATIO 1.1 (1.1-1.8); ALBUMIN 4.3 g/dL (3.0-4.8); CALCIUM 9.9 mg/dL (8.4-10.5)
[2018-12-30] MEDS ORDERED: Potassium Chloride 20 mEq ER Tab PO STA (08:31)
--- NOTE | 2018-12-30 08:46 | CP.PCM.PN ---
<Alfred Madsen - Last Filed: 12/30/18 13:13> Subjective - Date & Time of Evaluation Date of Evaluation: 12/30/18 Time of Evaluation: 08:40 - Subjective Subjective: Alfred Madsen, PGY-1, Internal Medicine Progress Note for Dr. Hudson Patient seen and evaluated at bedside. Patient had no acute overnight events except for being continually hypertension with SBP at 180s-200s. Patient denies any complaints at this time, but feel like she gets "white-coat" hypertension. Patient was emotional about the of her granddaughter. 12-point ROS was unremarkable except for what was mentioned above. Objective - Vital Signs/Intake and Output Vital Signs (last 24 hours): Temp Pulse Resp BP Pulse Ox 98 F 95 H 18 188/92 H 98 12/30/18 05:42 12/30/18 05:42 12/30/18 05:42 12/30/18 05:39 12/30/18 00:01 Intake and Output: 12/30/18 12/30/18 06:59 18:59 Intake Total 120 Balance 120 - Medications Medications: Current Medications Amlodipine Besylate (Norvasc) 10 mg PO DAILY [facility] Last Admin: 12/29/18 09:46 Dose: 10 mg Aspirin (Aspirin Chewable) 81 mg PO DAILY [facility] Last Admin: 12/29/18 09:46 Dose: 81 mg Atorvastatin Calcium (Lipitor) 40 mg PO DIN [facility] Last Admin: 12/29/18 18:12 Dose: 40 mg Cholecalciferol (Vitamin D) 2,000 intlu PO DAILY [facility] Last Admin: 12/29/18 09:46 Dose: 2,000 intlu Clonidine HCl (Catapres) 0.1 mg PO TID [facility] Last Admin: 12/29/18 18:12 Dose: 0.1 mg Cyanocobalamin (Vitamin B12 1000 Mcg/Ml Inj) 1,000 mcg IM DAILY [facility] Stop: 12/30/18 10:01 Last Admin: 12/29/18 09:42 Dose: 1,000 mcg Enoxaparin Sodium (Lovenox) 40 mg SC DAILY [facility]; Protocol Last Admin: 12/29/18 09:44 Dose: 40 mg Hydralazine HCl (Apresoline) 10 mg IVP Q6 PRN PRN Reason: Systolic Blood Pressure Last Admin: 12/30/18 05:06 Dose: 10 mg Hydrochlorothiazide (Hydrodiuril) 25 mg PO DAILY [facility] Last Admin: 12/29/18 09:45 Dose: 25 mg Nicardipine HCl (Cardene Iv Premix) 20 mg in 200 mls @ 50 mls/hr IV .Q4H PRN; Protocol PRN Reason: TITRATE PER MD ORDER Last Titration: 12/27/18 13:30 Dose: 0 mg/hr, 0 mls/hr Sodium Chloride (Sodium Chloride 0.45%) 1,000 mls @ 75 mls/hr IV .[id number] [facility] Last Admin: 12/30/18 04:19 Dose: 75 mls/hr Methimazole (Tapazole) 5 mg PO DAILY [facility] Last Admin: 12/29/18 14:31 Dose: 5 mg Metoprolol Tartrate (Lopressor) 25 mg PO 0800,1800 [facility] Last Admin: 12/29/18 18:12 Dose: 25 mg Pantoprazole Sodium (Protonix Ec Tab) 40 mg PO 0600 [facility] Last Admin: 12/30/18 06:11 Dose: 40 mg Saliva Substitute (Saliva Substitute) 0 ml PO TID PRN PRN Reason: Dry mouth Last Admin: 12/28/18 14:05 Dose: 1 ml Valsartan (Diovan) 320 mg PO DAILY [facility] Last Admin: 12/29/18 09:46 Dose: 320 mg - Labs Labs: 12/30/18 07:00 12/30/18 07:00 PT 13.7 SECONDS (9.4-12.5) H 12/26/18 23:25 INR 1.23 12/26/18 23:25 APTT 40.8 Seconds (26.9-38.3) H 12/26/18 23:25 - Constitutional Appears: Well, Non-toxic - Head Exam Head Exam: ATRAUMATIC, NORMAL INSPECTION, NORMOCEPHALIC - Eye Exam Eye Exam: EOMI, PERRL - ENT Exam ENT Exam: Mucous Membranes Moist - Respiratory Exam Respiratory Exam: Clear to Ausculation Bilateral, NORMAL BREATHING PATTERN - Cardiovascular Exam Cardiovascular Exam: REGULAR RHYTHM, RRR Additional comments: systolic ejection murmur at RUSB - GI/Abdominal Exam GI & Abdominal Exam: Soft, Normal Bowel Sounds. absent: Tenderness - Extremities Exam Extremities Exam: Full ROM - Neurological Exam Neurological Exam: Alert, Awake, CN II-XII Intact, Oriented x3 - Psychiatric Exam Psychiatric exam: Normal Affect, Normal Mood - Skin Skin Exam: Dry, Intact Assessment and Plan - Assessment and Plan (Free Text) Assessment: 63 year old female with a PMHx of uncontrolled HTN non-adherent to home medications due to insurance issues who presented to the ED for slurred speech. Systolic blood pressure was found to be in the 200's range and MRI showed acute lexa infarct Plan: Acute left lexa infarct -MRI showed left lexa infarct -MRA of head was unremarkable -Head and neck CTA showed 40% stenosis right proximal aspect of right internal carotid artery -Not a candidate for tPA -Continue aspirin and lipitor -Patient has steady gait walking and has done well with physical therapy. Patient's speech and swallow has been improving as per speech therapist. -Continue with physical therapy and speech and swallow evaluation follow up -Continue with aspiration precautions Hypertensive emergency -Still uncontrolled despite blood pressure medications. -Patient had slurred speech upon presentation with severely elevated blood pressure over 200s -Continue with norvasc, clonidine, HCTZ, valsartan -Increased metoprolol tartrate to 50 mg BID -Continue with hydralazine PRN for SBP>160 and DBP>110 -Dr. Jackman, nephrology, consulted for recommendations. VALDO-resolved -Creatinine: 1.2 -Continue with gentle hydration Pulmonary nodules -Chest CT showed 30x35 mm RLL. 27x40 mass in LLL. likely metastatic disease -Abdominal CT 12/29: no acute intraabdominal findings -IR, Dr. Rosales, consulted for further recommendations. However, patient at this time is refusing biopsy of lung nodules at this time. Diastolic CHF -Echocardiogram: LVEF: 64%, moderate diastolic dysfunction -Continue with valsartan -Increased lopressor to 50 mg BID Hyperthyroidism -TSH low at 0.02 and T4 increased to 11.7 -Repeat TSH was still <0.02 -Continue methimazole 5 mg daily Vitamin D deficiency -Vitamin D was <12.8 on this admission -Continue with cholecalciferol 2000 U daily Vitamin B12 deficiency -Vitamin B12 was within normal limits -Continue with Vitamin B12 supplementation GI prophylaxis: protonix 40 mg daily DVT prophylaxis: lovenox 40 mg daily Patient plan was discussed with attending. <Robles Hudson - Last Filed: 12/31/18 07:45> Objective - Vital Signs/Intake and Output Vital Signs (last 24 hours): Temp Pulse Resp BP Pulse Ox 98 F 94 H 20 175/79 H 94 L 12/31/18 06:00 12/31/18 06:37 12/31/18 06:00 12/31/18 06:37 12/31/18 06:00 Intake and Output: 12/31/18 12/31/18 06:59 18:59 Intake Total 960 Balance 960 - Medications Medications: Current Medications Amlodipine Besylate (Norvasc) 10 mg PO DAILY [facility] Last Admin: 12/30/18 09:47 Dose: 10 mg Aspirin (Aspirin Chewable) 81 mg PO DAILY [facility] Last Admin: 12/30/18 09:47 Dose: 81 mg Atorvastatin Calcium (Lipitor) 40 mg PO DIN [facility] Last Admin: 12/30/18 18:02 Dose: 40 mg Clonidine HCl (Catapres) 0.2 mg PO TID [facility] Enoxaparin Sodium (Lovenox) 40 mg SC DAILY [facility]; Protocol Last Admin: 12/30/18 09:48 Dose: 40 mg Ergocalciferol (Drisdol 50,000 Intl Units Cap) 1 cap PO Q7D [facility] Last Admin: 12/30/18 18:05 Dose: 1 cap Hydralazine HCl (Apresoline) 10 mg IVP Q6 PRN PRN Reason: Systolic Blood Pressure Last Admin: 12/31/18 05:00 Dose: 10 mg Hydrochlorothiazide (Hydrodiuril) 25 mg PO DAILY [facility] Last Admin: 12/30/18 09:47 Dose: 25 mg Methimazole (Tapazole) 5 mg PO DAILY [facility] Last Admin: 12/30/18 09:47 Dose: 5 mg Metoprolol Tartrate (Lopressor) 50 mg PO BID [facility] Last Admin: 12/30/18 18:03 Dose: 50 mg Pantoprazole Sodium (Protonix Ec Tab) 40 mg PO 0600 [facility] Last Admin: 12/31/18 05:11 Dose: 40 mg Saliva Substitute (Saliva Substitute) 0 ml PO TID PRN PRN Reason: Dry mouth Last Admin: 12/28/18 14:05 Dose: 1 ml Spironolactone (Aldactone) 25 mg PO DAILY [facility] Last Admin: 12/30/18 14:52 Dose: 25 mg Valsartan (Diovan) 320 mg PO DAILY [facility] Last Admin: 12/30/18 09:47 Dose: 320 mg - Labs Labs: 12/31/18 06:30 12/30/18 07:00 PT 13.7 SECONDS (9.4-12.5) H 12/26/18 23:25 INR 1.23 12/26/18 23:25 APTT 40.8 Seconds (26.9-38.3) H 12/26/18 23:25 Attending/Attestation - Attestation I have personally seen and examined this patient.: Yes I have fully participated in the care of the patient.: Yes I have reviewed all pertinent clinical information, including history, physical exam and plan: Yes Notes (Text): 12/31/18 07:40 Patient was seen and examined with medical review coordinator. 63 year old female with past medical history of hypertension , noncompliance with medication medications was admitted with slurred speech and hypertensive urgency. She was started on nicardipine drip initially. CT head showed chronic bilateral subcortical lacunar infarcts, not acute fin dings. MRI brain showed acute or subacute left lexa infarct. MRA head/neck showed ?stenosis distal bilateral vertebral arteries. CTA head/neck showed 40% proximal right ICA stenosis. Neurology is following. Patient is on aspirin and statin. Blood pressure is still running high, Metoprolol dose is increased to 50 mg PO BID, will also add Aldactone. Patient is also on clonidine, valsartan, HTCZ, norvasc . Patient was also found to have 30 x 35 mm smooth contoured mass at right lung base, heavily calcified 27 x 40 mm at the left lung base and multiple 5 mm bilateral nodules suspicious for metastatic disease. Findings were discussed with the patient .Patient is refusing biopsy at this time.She is aware of these finding , as per patient these are not new.If she will refuse, then will need repeat CT chest in 3 month and close follow up as out patient. Management plan was discussed in detail with patient. Education was provided.
[2018-12-30] MEDS: methIMAzole 5 MG TAB PO SCH (09:47)
[2018-12-30] MEDS: Cholecalciferol 1,000 INTLU TAB PO SCH (09:48)
[2018-12-30] MEDS: Enoxaparin 40 mg Syringe SC SCH (09:48)
--- NOTE | 2018-12-30 11:17 | CT ---
Date of service: 12/29/2018 PROCEDURE: CT Abdomen and Pelvis with contrast HISTORY: Evaluation for metastasis COMPARISON: None. TECHNIQUE: Contrast dose: 100 cc of Omni 350 Radiation dose: Total exam DLP = 1011.36 mGy-cm. This CT exam was performed using one or more of the following dose reduction techniques: Automated exposure control, adjustment of the mA and/or kV according to patient size, and/or use of iterative reconstruction technique. FINDINGS: LOWER THORAX: Right lower lobe lung mass and left lower lobe calcified mass as reported on recent chest CT LIVER: Unremarkable. No gross lesion or ductal dilatation. GALLBLADDER AND BILE DUCTS: Unremarkable. PANCREAS: Unremarkable. No gross lesion or ductal dilatation. SPLEEN: Unremarkable. ADRENALS: Unremarkable. No mass. KIDNEYS AND URETERS: Unremarkable. No hydronephrosis. No solid mass. VASCULATURE: Unremarkable. No aortic aneurysm. No aortic atherosclerotic calcification or mural plaque present. BOWEL: Unremarkable. No obstruction. No gross mural thickening. APPENDIX: Normal appendix. PERITONEUM: Unremarkable. No free fluid. No free air. LYMPH NODES: Unremarkable. No enlarged lymph nodes. BLADDER: Unremarkable. REPRODUCTIVE: Calcified fibroid BONES: No acute fracture. OTHER FINDINGS: None. IMPRESSION: No acute intra-abdominal findings. No evidence of metastatic disease
[2018-12-30] MEDS ORDERED: Ergocalciferol 50,000 Intl Units Cap PO SCH (15:00)
--- NOTE | 2018-12-30 17:33 | CP.PCM.CON ---
History of Present Illness - History of Present Illness History of Present Illness: renal consult note 63 yr old female with long standing htn > 10 years is admtited with acute cva. She has been on multiple meds with poorely controlled bp and usually runs around 170s. no other medical hx. recentl lost insurance hence unable to get meds. meds reviewed complete ros is negative labs reviewed social hx non smoker no alcohol fam hx negative for kidney disease, reports htn in all family members vitals reviewed bp high heent normal op moist no jvd s1s2 present nor foreign distress abd soft nt nd bs + skin normal ao times 3 cooperative A&P: htn, uncontrolled acute cva hyypokalemia 63 yr ols with long standing uncontrolled htn on more than 3 meds still suboptimally controlled agree with meds titration per primary team recommend checkin renin bryan as hypokalemic on admission and today despite high dose ARB can add aldactone 25 mg oral dialy t obid if need be can check renal artery doppler to rule out stenosis d/w primary team attending thank you for the consult. please call us at [phone] Past Patient History - Infectious Disease Hx of Infectious Diseases: None - Past Social History Smoking Status: Never Smoked - CARDIAC Hx Hypertension: Yes (non-compliant with meds) - PULMONARY Hx Respiratory Disorders: No - NEUROLOGICAL Hx Neurological Disorder: No - HEENT Hx HEENT Problems: No - RENAL Hx Chronic Kidney Disease: No - ENDOCRINE/METABOLIC Hx Endocrine Disorders: No - HEMATOLOGICAL/ONCOLOGICAL Hx Blood Disorders: No - INTEGUMENTARY Hx Dermatological Problems: No - MUSCULOSKELETAL/RHEUMATOLOGICAL Hx Musculoskeletal Disorders: No Hx Falls: No Other/Comment: BL Knee replacement - GASTROINTESTINAL Hx Gastrointestinal Disorders: No - GENITOURINARY/GYNECOLOGICAL Hx Genitourinary Disorders: No - PSYCHIATRIC Hx Psychophysiologic Disorder: No - SURGICAL HISTORY Hx Surgeries: No - ANESTHESIA Hx Anesthesia: No Meds Allergies/Adverse Reactions: Allergies Allergy/AdvReac Type Severity Reaction Status Date / Time No Known Allergies Allergy Verified 12/26/18 23:16 - Medications Medications: Current Medications Amlodipine Besylate (Norvasc) 10 mg PO DAILY [facility] Last Admin: 12/30/18 09:47 Dose: 10 mg Aspirin (Aspirin Chewable) 81 mg PO DAILY [facility] Last Admin: 12/30/18 09:47 Dose: 81 mg Atorvastatin Calcium (Lipitor) 40 mg PO DIN [facility] Last Admin: 12/29/18 18:12 Dose: 40 mg Clonidine HCl (Catapres) 0.1 mg PO TID [facility] Last Admin: 12/30/18 14:48 Dose: 0.1 mg Enoxaparin Sodium (Lovenox) 40 mg SC DAILY [facility]; Protocol Last Admin: 12/30/18 09:48 Dose: 40 mg Ergocalciferol (Drisdol 50,000 Intl Units Cap) 1 cap PO Q7D [facility] Hydralazine HCl (Apresoline) 10 mg IVP Q6 PRN PRN Reason: Systolic Blood Pressure Last Admin: 12/30/18 05:06 Dose: 10 mg Hydrochlorothiazide (Hydrodiuril) 25 mg PO DAILY [facility] Last Admin: 12/30/18 09:47 Dose: 25 mg Methimazole (Tapazole) 5 mg PO DAILY [facility] Last Admin: 12/30/18 09:47 Dose: 5 mg Metoprolol Tartrate (Lopressor) 50 mg PO BID [facility] Pantoprazole Sodium (Protonix Ec Tab) 40 mg PO 0600 [facility] Last Admin: 12/30/18 06:11 Dose: 40 mg Saliva Substitute (Saliva Substitute) 0 ml PO TID PRN PRN Reason: Dry mouth Last Admin: 12/28/18 14:05 Dose: 1 ml Spironolactone (Aldactone) 25 mg PO DAILY [facility] Last Admin: 12/30/18 14:52 Dose: 25 mg Valsartan (Diovan) 320 mg PO DAILY [facility] Last Admin: 12/30/18 09:47 Dose: 320 mg Results - Vital Signs Recent Vital Signs: Last Vital Signs Temp 97.9 F 12/30/18 12:00 Pulse 84 12/30/18 14:48 Resp 20 12/30/18 12:00 BP 138/96 H 12/30/18 14:48 Pulse Ox 98 12/30/18 00:01 - Labs Result Diagrams: 12/30/18 07:00 12/30/18 07:00 Labs: Laboratory Results - last 24 hr 12/30/18 12/30/18 07:00 07:00 WBC 9.8 RBC 5.70 Hgb 13.6 Hct 42.3 MCV 74.2 L MCH 23.9 L MCHC 32.2 RDW 15.8 H Plt Count 407 MPV 10.0 Sodium 143 Potassium 3.4 L Chloride 105 Carbon Dioxide 28 Anion Gap 13 BUN 17 Creatinine 1.2 Est GFR ( Amer) 55 Est GFR (Non-Af Amer) 45 Random Glucose 99 Calcium 9.9 Phosphorus 4.3 Magnesium 2.2 Total Bilirubin 0.4 AST 28 ALT 6 L Alkaline Phosphatase 110 Total Protein 8.3 Albumin 4.3 Globulin 4.0 Albumin/Globulin Ratio 1.1
--- NOTE | 2018-12-30 20:18 | CON ---
DATE OF CONSULTATION: 12/30/2018 CHIEF COMPLAINT/HISTORY OF PRESENT ILLNESS: I was asked to see Ms. Shin concerning a possible lung biopsy. She is a 63-year-old woman, who was admitted with uncontrolled hypertension and an acute lexa infarct. Neurologically, she has recovered nicely. She had a chest x-ray and subsequent chest CT, which revealed a 3.5 cm noncalcified lobulated mass in the right lower lobe along with a calcified 3 to 4 cm pleural mass in the left chest posterior medially. Ms. Shin is not a smoker. She has no history of cancer. She has been feeling fine recently other than her hypertension and recent neurologic issues. I had a long conversation with her and her family. Given the size of the lesion and lack of calcium, I think a CT lung biopsy is warranted. If she elects not to have a biopsy, she should have close interval CT followup. Gildardo Rosales MD MTDD
[2018-12-31] MEDS: Pantoprazole 40 mg EC Tab PO SCH (05:11)
[2018-12-31 07:13] LABS: HEMOGLOBIN 12.3 g/dL (12.0-16.0); MEAN CORPUSCULAR HEMOGLOBIN 23.4 pg (25.0-35.0); MEAN CORPUSCULAR HGB CONC 31.6 g/dl (31.0-37.0); MEAN PLATELET VOLUME 10.3 fl (7.0-11.0); RBC 5.26 10^6/uL (3.5-6.1); RED CELL DISTRIBUTION WIDTH 15.7 % (11.5-14.5); WHITE BLOOD COUNT 8.3 10^3/uL (4.5-11.0)
[2018-12-31 07:50] LABS: ALBUMIN 3.6 g/dL (3.0-4.8); CALCIUM 9.1 mg/dL (8.4-10.5)
--- NOTE | 2018-12-31 07:51 | CP.PCM.PN ---
<Alfred Madsen - Last Filed: 12/31/18 13:16> Subjective - Date & Time of Evaluation Date of Evaluation: 12/31/18 Time of Evaluation: 07:46 - Subjective Subjective: Alfred Madsen, PGY-1, Internal Medicine Progress Note for Dr. Hudson Patient was seen and evaluated at bedside. Patient had no acute overnight events. Patient denied any symptoms at this time. 12-point ROS was unremarkable except for what was mentioned above Objective - Vital Signs/Intake and Output Vital Signs (last 24 hours): Temp Pulse Resp BP Pulse Ox 98 F 94 H 20 175/79 H 94 L 12/31/18 06:00 12/31/18 06:37 12/31/18 06:00 12/31/18 06:37 12/31/18 06:00 Intake and Output: 12/31/18 12/31/18 06:59 18:59 Intake Total 960 Balance 960 - Medications Medications: Current Medications Amlodipine Besylate (Norvasc) 10 mg PO DAILY [facility] Last Admin: 12/30/18 09:47 Dose: 10 mg Aspirin (Aspirin Chewable) 81 mg PO DAILY [facility] Last Admin: 12/30/18 09:47 Dose: 81 mg Atorvastatin Calcium (Lipitor) 40 mg PO DIN [facility] Last Admin: 12/30/18 18:02 Dose: 40 mg Clonidine HCl (Catapres) 0.2 mg PO TID [facility] Enoxaparin Sodium (Lovenox) 40 mg SC DAILY [facility]; Protocol Last Admin: 12/30/18 09:48 Dose: 40 mg Ergocalciferol (Drisdol 50,000 Intl Units Cap) 1 cap PO Q7D [facility] Last Admin: 12/30/18 18:05 Dose: 1 cap Hydralazine HCl (Apresoline) 10 mg IVP Q6 PRN PRN Reason: Systolic Blood Pressure Last Admin: 12/31/18 05:00 Dose: 10 mg Hydrochlorothiazide (Hydrodiuril) 25 mg PO DAILY [facility] Last Admin: 12/30/18 09:47 Dose: 25 mg Methimazole (Tapazole) 5 mg PO DAILY [facility] Last Admin: 12/30/18 09:47 Dose: 5 mg Metoprolol Tartrate (Lopressor) 50 mg PO BID [facility] Last Admin: 12/30/18 18:03 Dose: 50 mg Pantoprazole Sodium (Protonix Ec Tab) 40 mg PO 0600 [facility] Last Admin: 12/31/18 05:11 Dose: 40 mg Saliva Substitute (Saliva Substitute) 0 ml PO TID PRN PRN Reason: Dry mouth Last Admin: 12/28/18 14:05 Dose: 1 ml Spironolactone (Aldactone) 25 mg PO DAILY [facility] Last Admin: 12/30/18 14:52 Dose: 25 mg Valsartan (Diovan) 320 mg PO DAILY [facility] Last Admin: 12/30/18 09:47 Dose: 320 mg - Labs Labs: 12/31/18 06:30 12/30/18 07:00 PT 13.7 SECONDS (9.4-12.5) H 12/26/18 23:25 INR 1.23 12/26/18 23:25 APTT 40.8 Seconds (26.9-38.3) H 12/26/18 23:25 - Constitutional Appears: Well, Non-toxic, No Acute Distress - Head Exam Head Exam: ATRAUMATIC, NORMAL INSPECTION, NORMOCEPHALIC - Eye Exam Eye Exam: EOMI, PERRL - Respiratory Exam Respiratory Exam: Clear to Ausculation Bilateral, NORMAL BREATHING PATTERN - Cardiovascular Exam Cardiovascular Exam: REGULAR RHYTHM, RRR, Murmur (systolic ejection murmur) - GI/Abdominal Exam GI & Abdominal Exam: Soft, Normal Bowel Sounds. absent: Tenderness - Extremities Exam Extremities Exam: Full ROM. absent: Pedal Edema - Neurological Exam Neurological Exam: Alert, Awake, CN II-XII Intact, Oriented x3 - Skin Skin Exam: Dry, Intact Assessment and Plan - Assessment and Plan (Free Text) Assessment: 63 year old female with a PMHx of uncontrolled HTN non-adherent to home medications due to insurance issues who presented to the ED for slurred speech. Systolic blood pressure was found to be in the 200's range and MRI showed acute lexa infarct Plan: Acute left lexa infarct -MRI showed left lexa infarct -MRA of head was unremarkable -Head and neck CTA showed 40% stenosis right proximal aspect of right internal carotid artery -Not a candidate for tPA -Continue aspirin and lipitor -Patient has steady gait walking and has done well with physical therapy. Patient's speech and swallow has been improving as per speech therapist. -Continue with physical therapy and speech and swallow evaluation follow up -Continue with aspiration precautions Hypertensive emergency -Still uncontrolled with SBP in 190s despite blood pressure medications. -Patient had slurred speech upon presentation with severely elevated blood pressure over 200s -Continue with norvasc, HCTZ, valsartan, lopressor. Started aldactone yesterday. Increased clonidine to 0.2 mg TID today. -Continue with hydralazine PRN for SBP>160 and DBP>110 -Renal artery ultrasound: no left main renal artery not evaluated. right main renal artery is tortuous and visualized in segments. no sonographically significant stenosis identified. Due to this study's limitation, MRA or CTA was recommended, however, will hold off for now in light of patient's VALDO. -Will follow up renin and aldosterone levels as patient was hypokalemic on admission VALDO -Cr: 1.6 from 1.2 -NS at 75 cc/hr -Likely 2/2 to contrast patient received from abdominal and pelvis CT Pulmonary nodules -Chest CT showed 30x35 mm RLL. 27x40 mass in LLL. -Abdominal CT 12/29: no acute intraabdominal findings -Patient is now agreeable to biopsy with IR and will have biopsy at 3 PM tomorrow. Diastolic CHF -Echocardiogram: LVEF: 64%, moderate diastolic dysfunction -Continue with valsartan, lopressor Hyperthyroidism -TSH low at 0.02 and T4 increased to 11.7 -Repeat TSH was still <0.02 -Continue methimazole 5 mg daily Vitamin D deficiency -Vitamin D was <12.8 on this admission -Continue with ergocalciferol 1 tab Q7D Vitamin B12 deficiency -Vitamin B12 was within normal limits -Continue with Vitamin B12 supplementation GI prophylaxis: protonix 40 mg daily DVT prophylaxis: lovenox 40 mg daily Patient plan was discussed with attending. <Robles Hudson - Last Filed: 01/02/19 14:18> Objective - Vital Signs/Intake and Output Vital Signs (last 24 hours): Temp Pulse Resp BP Pulse Ox 97.8 F 54 L 18 129/69 95 01/02/19 12:00 01/02/19 12:00 01/02/19 12:00 01/02/19 12:00 01/02/19 06:00 Intake and Output: 01/02/19 01/02/19 06:59 18:59 Intake Total 2040 Output Total 601 Balance 1439 - Medications Medications: Current Medications Acetaminophen (Tylenol 325mg Tab) 650 mg PO Q4 PRN PRN Reason: Pain, Mild (1-3) Amlodipine Besylate (Norvasc) 10 mg PO DAILY [facility] Last Admin: 01/02/19 10:24 Dose: 10 mg Aspirin (Aspirin Chewable) 81 mg PO DAILY [facility] Last Admin: 01/02/19 10:16 Dose: 81 mg Atorvastatin Calcium (Lipitor) 40 mg PO DIN [facility] Last Admin: 01/01/19 18:49 Dose: 40 mg Clonidine HCl (Catapres) 0.2 mg PO Q8 [facility] Last Admin: 01/02/19 06:31 Dose: 0.2 mg Ergocalciferol (Drisdol 50,000 Intl Units Cap) 1 cap PO Q7D [facility] Last Admin: 12/30/18 18:05 Dose: 1 cap Heparin Sodium (Porcine) (Heparin) 5,000 units SC Q8 [facility]; Protocol Last Admin: 01/01/19 05:00 Dose: Not Given Hydralazine HCl (Apresoline) 25 mg PO Q8H [facility] Last Admin: 01/02/19 10:16 Dose: 25 mg Methimazole (Tapazole) 5 mg PO TID [facility] Last Admin: 01/02/19 10:23 Dose: 5 mg Metoprolol Tartrate (Lopressor) 75 mg PO Q12 [facility] Last Admin: 01/02/19 10:17 Dose: 75 mg Ondansetron HCl (Zofran Inj) 4 mg IVP Q6H PRN PRN Reason: Nausea/Vomiting Saliva Substitute (Saliva Substitute) 0 ml PO TID PRN PRN Reason: Dry mouth Last Admin: 12/28/18 14:05 Dose: 1 ml Spironolactone (Aldactone) 25 mg PO DAILY [facility] Last Admin: 01/02/19 10:15 Dose: 25 mg Valsartan (Diovan) 320 mg PO DAILY [facility] Last Admin: 12/31/18 09:34 Dose: 320 mg - Labs Labs: 12/31/18 06:30 01/02/19 07:40 PT 13.7 SECONDS (9.4-12.5) H 12/26/18 23:25 INR 1.23 12/26/18 23:25 APTT 40.8 Seconds (26.9-38.3) H 12/26/18 23:25 Attending/Attestation - Attestation I have personally seen and examined this patient.: Yes I have fully participated in the care of the patient.: Yes I have reviewed all pertinent clinical information, including history, physical exam and plan: Yes Notes (Text): 01/02/19 14:18 Medical record note made by the resident after discussion with my direction and input after the patient was personally seen and examined by me. I have reviewed the chart and agree that the record accurately reflects by personal performance of the history, physical exam, data review, and medical decision-making, in the course for the patient. I have also personally directed the plan of care.
[2018-12-31] MEDS ORDERED: Sodium Chloride 0.45% 1,000 ML IV SCH (08:30)
--- NOTE | 2018-12-31 10:12 | US ---
PROCEDURE: Bilateral renal artery duplex ultrasound. CLINICAL HISTORY: Renal artery stenosis. Uncontrolled hypertension. Evaluate for renovascular hypertension. PHYSICIAN(S): Gildardo Rosales M.D. TECHNIQUE: Duplex sonography with color-flow Doppler was used to evaluate the visualized segments of the main renal arteries. The patient was evaluated in a fasting state. Imaging in a supine and decubitus position was performed. Limited evaluation of the arcuate waveforms and resistive indices were performed. FINDINGS: Visualization of the main renal arteries is inadequate on the left and limited on the right. The kidneys are normal in size, shape, and location. The right kidney measures 10.5cm in length and the left kidney measures 11.9cm in length. No solid renal masses, abnormal calcifications, or hydronephrosis is seen. The renal parenchyma is normal in thickness but somewhat echogenic The main right renal artery is tortuous.. The peak systolic velocity in the right main renal artery is 163 cm/sec. This is consistent with a 0 to 49% stenosis in the main right renal artery. The arcuate waveforms are normal. The resistive index is normal. The main left renal artery is not adequately visualized. The arcuate waveform and resistive index is normal IMPRESSION: 1. Very limited study. The left main renal artery is not evaluated. The right main renal artery is tortuous and visualized in segments. If clinical suspicion for renal artery stenosis is high, further evaluation with MRA with gadolinium study or CTA can be considered. 2. No sonographically significant stenosis is identified. 3. The kidneys are normal and symmetric in size. There are no solid renal masses, abnormal calcifications or hydronephrosis noted. The renal parenchyma is echogenic.
[2018-12-31] MEDS: Sodium Chloride 0.45% 1,000 ML IV SCH (11:38)
--- NOTE | 2018-12-31 12:28 | CP.PCM.PN ---
Subjective - Date & Time of Evaluation Date of Evaluation: 12/31/18 Time of Evaluation: 12:22 - Subjective Subjective: renal note 63 yr old female with long standing htn > 10 years is admtited with acute cva. She has been on multiple meds with poorely controlled bp and usually runs around 170s. no other medical hx. recentl lost insurance hence unable to get meds. meds reviewed complete ros is negative labs reviewed social hx non smoker no alcohol fam hx negative for kidney disease, reports htn in all family members Sub: pt feels in usual health. no complaints. denies CP/SOB/urine complaints. oral intake good. vitals reviewed heent normal op moist no jvd s1s2 present. sm+ at aortic area nor foreign distress abd soft nt nd bs + skin normal ao times 3 cooperative A&P: htn, uncontrolled acute cva hyypokalemia VALDO likely contrast induced and hemodynamic Obesity Hyperthyroidism moderate pulmonary HTN and moderate to severe LVH Vit D def ? mets to lung Recommendations: No acute need for renal replacement therapy at this time. Hypertension control with meds as ordered. Maintain hemodynamics stable. Avoid hypotension. Patient on losartan. target gradual decrease in BP considering CVA Monitor Input/Output, daily weights and renal function with basic metabolic panel continue with vit D supplements need control of hyperthyroidism for better htn control planned for biopsy Secondary HTN work up with plasma renin/aldosterone, plasma metanephrine and renal artery Doppler to r/o renal artery stenosis Dose meds/antibiotics for reduced GFR. Avoid fleets enema/magnesium based laxatives. Avoid nephrotoxins/NSAIDs/ iodinated contrast (unless needed emergently) Glycemic control, renal diet. Further work up for as per primary team. Thanks for allowing me to participate in care of your patient. Will follow pat [place] with you. Please call if any Qs Dr Jonh Arora Office: [phone] Objective - Vital Signs/Intake and Output Vital Signs (last 24 hours): Temp Pulse Resp BP Pulse Ox 97.7 F 64 18 157/81 H 94 L 12/31/18 12:00 12/31/18 12:00 12/31/18 12:00 12/31/18 12:00 12/31/18 06:00 Intake and Output: 12/31/18 12/31/18 06:59 18:59 Intake Total 960 Balance 960 - Medications Medications: Current Medications Amlodipine Besylate (Norvasc) 10 mg PO DAILY [facility] Last Admin: 12/31/18 09:33 Dose: 10 mg Aspirin (Aspirin Chewable) 81 mg PO DAILY [facility] Last Admin: 12/31/18 09:34 Dose: 81 mg Atorvastatin Calcium (Lipitor) 40 mg PO DIN [facility] Last Admin: 12/30/18 18:02 Dose: 40 mg Clonidine HCl (Catapres) 0.2 mg PO TID [facility] Last Admin: 12/31/18 09:34 Dose: 0.2 mg Ergocalciferol (Drisdol 50,000 Intl Units Cap) 1 cap PO Q7D [facility] Last Admin: 12/30/18 18:05 Dose: 1 cap Heparin Sodium (Porcine) (Heparin) 5,000 units SC Q8 [facility]; Protocol Hydralazine HCl (Apresoline) 10 mg IVP Q6 PRN PRN Reason: Systolic Blood Pressure Last Admin: 12/31/18 05:00 Dose: 10 mg Hydrochlorothiazide (Hydrodiuril) 25 mg PO DAILY [facility] Last Admin: 12/31/18 09:35 Dose: 25 mg Sodium Chloride (Sodium Chloride 0.45%) 1,000 mls @ 75 mls/hr IV .[id number] [facility] Stop: 01/02/19 13:49 Last Admin: 12/31/18 11:38 Dose: Not Given Methimazole (Tapazole) 5 mg PO DAILY [facility] Last Admin: 12/30/18 09:47 Dose: 5 mg Metoprolol Tartrate (Lopressor) 50 mg PO BID [facility] Saliva Substitute (Saliva Substitute) 0 ml PO TID PRN PRN Reason: Dry mouth Last Admin: 12/28/18 14:05 Dose: 1 ml Spironolactone (Aldactone) 25 mg PO DAILY [facility] Last Admin: 12/31/18 09:34 Dose: 25 mg Valsartan (Diovan) 320 mg PO DAILY [facility] Last Admin: 12/31/18 09:34 Dose: 320 mg - Labs Labs: 12/31/18 06:30 12/31/18 06:30 PT 13.7 SECONDS (9.4-12.5) H 12/26/18 23:25 INR 1.23 12/26/18 23:25 APTT 40.8 Seconds (26.9-38.3) H 12/26/18 23:25
[2018-12-31] MEDS: methIMAzole 5 MG TAB PO SCH (13:02)
--- NOTE | 2018-12-31 15:24 | CP.PCM.DIS ---
<BelénwillAlfred valencia - Last Filed: 01/02/19 15:14> Provider - Provider Date of Admission: 12/27/18 01:43 Attending physician: Robles Hudson MD Primary care physician: none Consults: 12/27/18 09:02 Neurology Consult Routine Comment: Consulting Provider: Curtis Stone Consulting Physician: Curtis Stone Reason for Consult: slurred speech 12/27/18 12:20 Case Management Referral Routine Comment: Physician Instructions: Reason For Exam: Reason for Referral: Discharge Planning 12/27/18 17:07 Radiology Consult Routine Comment: Consulting Provider: Gildardo Rosales Consulting Physician: Gildardo Rosales Reason for Consult: RLL lung mass - biopsy 12/29/18 15:29 Nephrology Consult Routine Comment: Consulting Provider: Nida Jackman Consulting Physician: Nida Jackman Reason for Consult: severely uncontrolled HTN with multiple antihypertensive medication Time Spent in preparation of Discharge (in minutes): 60 Diagnosis - Discharge Diagnosis (1) Acute ischemic stroke Status: Acute (2) Hypertensive emergency Status: Acute Hospital Course - Lab Results Lab Results: Micro Results 12/27/18 04:30 Nose MRSA Culture (Admit) - Final MRSA NOT DETECTED Most Recent Lab Values WBC 8.3 10^3/uL (4.5-11.0) 12/31/18 06:30 RBC 5.26 10^6/uL (3.5-6.1) 12/31/18 06:30 Hgb 12.3 g/dL (12.0-16.0) 12/31/18 06:30 Hct 38.9 % (36.0-48.0) 12/31/18 06:30 MCV 74.0 fl (80.0-105.0) L 12/31/18 06:30 MCH 23.4 pg (25.0-35.0) L 12/31/18 06:30 MCHC 31.6 g/dl (31.0-37.0) 12/31/18 06:30 RDW 15.7 % (11.5-14.5) H 12/31/18 06:30 Plt Count 370 10^3/uL (120.0-450.0) 12/31/18 06:30 MPV 10.3 fl (7.0-11.0) 12/31/18 06:30 Neut % (Auto) 79.6 % (50.0-68.0) H 12/27/18 06:55 Lymph % (Auto) 13.7 % (22.0-35.0) L 12/27/18 06:55 Esmeralda % (Auto) 6.4 % (1.0-6.0) H 12/27/18 06:55 Eos % (Auto) 0.2 % (1.5-5.0) L 12/27/18 06:55 Baso % (Auto) 0.1 % (0.0-3.0) 12/27/18 06:55 Lymph # (Auto) 1.8 (1.2-3.4) 12/27/18 06:55 Esmeralda # (Auto) 0.8 (0.1-0.6) H 12/27/18 06:55 Eos # (Auto) 0.0 (0.0-0.7) 12/27/18 06:55 Baso # (Auto) 0.01 K/mm3 (0.0-2.0) 12/27/18 06:55 Absolute Neuts (auto) 10.39 (1.4-6.5) H 12/27/18 06:55 PT 13.7 SECONDS (9.4-12.5) H 12/26/18 23:25 INR 1.23 12/26/18 23:25 APTT 40.8 Seconds (26.9-38.3) H 12/26/18 23:25 Sodium 140 mmol/L (132-148) 12/31/18 06:30 Potassium 3.7 mmol/L (3.6-5.0) 12/31/18 06:30 Chloride 106 mmol/L (98-107) 12/31/18 06:30 Carbon Dioxide 27 mmol/L (21-33) 12/31/18 06:30 Anion Gap 12 (10-20) 12/31/18 06:30 BUN 26 mg/dL (7-21) H 12/31/18 06:30 Creatinine 1.6 mg/dl (0.7-1.2) H 12/31/18 06:30 Est GFR ( Amer) 39 12/31/18 06:30 Est GFR (Non-Af Amer) 32 12/31/18 06:30 POC Glucose (mg/dL) 122 mg/dL (65-110) H 12/26/18 23:09 Random Glucose 90 mg/dL (70-110) 12/31/18 06:30 Hemoglobin A1c 5.3 % (4.2-6.5) 12/27/18 08:30 Calcium 9.1 mg/dL (8.4-10.5) 12/31/18 06:30 Phosphorus 4.6 mg/dL (2.5-4.5) H 12/31/18 06:30 Magnesium 2.4 mg/dL (1.7-2.2) H 12/31/18 06:30 Total Bilirubin 0.3 mg/dL (0.2-1.3) 12/31/18 06:30 AST 29 U/L (14-36) 12/31/18 06:30 ALT 17 U/L (7-56) 12/31/18 06:30 Alkaline Phosphatase 79 U/L (38-126) 12/31/18 06:30 Lactate Dehydrogenase 641 U/L (333-699) 12/26/18 23:25 Total Creatine Kinase 47 U/L (35-230) 12/26/18 23:25 Troponin I 0.03 ng/mL 12/26/18 23:25 Total Protein 7.2 g/dL (5.8-8.3) 12/31/18 06:30 Albumin 3.6 g/dL (3.0-4.8) 12/31/18 06:30 Globulin 3.5 gm/dL 12/31/18 06:30 Albumin/Globulin Ratio 1.0 (1.1-1.8) L 12/31/18 06:30 Triglycerides 78 mg/dL (35-160) 12/26/18 23:25 Cholesterol 205 mg/dL (130-200) H 12/26/18 23:25 LDL Cholesterol Direct 117 mg/dL (0-129) 12/26/18 23:25 HDL Cholesterol 46 mg/dL (29-60) 12/26/18 23:25 Vitamin B12 240 pg/mL (239-931) 12/27/18 08:30 25-OH Vitamin D Total < 12.8 NG/ML (30.0-100.0) L 12/27/18 08:30 Folate > 20.0 ng/mL 12/27/18 08:30 Homocysteine 9.8 umol/L (4.7-12.6) 12/27/18 08:30 Free T4 2.00 ng/dL (0.78-2.19) 12/27/18 08:26 Thyroxine (T4) 11.7 ug/dL (5.5-11.0) H 12/28/18 07:00 Total T3 1.43 ng/mL (0.97-1.69) 12/28/18 07:00 TSH 3rd Generation < 0.02 mIU/mL (0.46-4.68) L 12/29/18 07:00 Urine Color Yellow (YELLOW) 12/27/18 04:30 Urine Appearance Clear (CLEAR) 12/27/18 04:30 Urine pH 7.0 (4.7-8.0) 12/27/18 04:30 Ur Specific [place] 1.010 (1.005-1.035) 12/27/18 04:30 Urine Protein 30 mg/dL (<30 mg/dL) H 12/27/18 04:30 Urine Glucose (UA) Negative mg/dL (NEGATIVE) 12/27/18 04:30 Urine Ketones Negative mg/dL (NEGATIVE) 12/27/18 04:30 Urine Blood Trace-lysed (NEGATIVE) H 12/27/18 04:30 Urine Nitrate Negative (NEGATIVE) 12/27/18 04:30 Urine Bilirubin Negative (NEGATIVE) 12/27/18 04:30 Urine Urobilinogen 0.2 E.U./dL (<1 E.U./dL) 12/27/18 04:30 Ur Leukocyte Esterase Negative Racheal/uL (NEGATIVE) 12/27/18 04:30 Urine RBC 0 - 2 /hpf (0-2) 12/27/18 04:30 Urine WBC 0 - 2 /hpf (0-6) 12/27/18 04:30 Ur Epithelial Cells 1 - 3 /hpf (0-5) 12/27/18 04:30 Urine Bacteria Rare /hpf (NONE) 12/27/18 04:30 - Hospital Course Hospital Course: Alfred Madsen, PGY-1, Internal Medicine Discharge Summary for Dr. Hudson 63 year old female with past medical history of hypertension presented with slurred speech. Brain MRI showed acute or subacute left lexa infarct. MRA of neck was unremarkable. Head and neck CTA showed 40% stenosis right proximal aspect of right internal carotid artery. Patient was not a candidate for tPA. Patient was started on aspirin and lipitor. Patient worked with physical therapy and was able to have steady gait walking and did well with physical therapy. Patient's speech and swallow improved as the admission progressed. Patient was also found to have blood pressure elevated to be 259/152 likely a large risk factor for her acute stroke. As a result, patient was started on a nicardipine drip in the ICU. Patient's systolic blood pressure improved to the 150s. However, once patient was transferred to the medicine floors, patient was restarted on home blood pressure medications, norvasc, and diovan, with subsequent increase of systolic blood pressure to over 200. Patient was subsequently placed on lopressor, clonidine 0.2 mg TID, and hydralazine 10 mg Q6 as needed. Patient was also started on aldactone. Patient's blood pressure improved to systolic blood pressure of 150s. However, due to patient's VALDO, patient's valsartan and HCTZ was stopped. HCTZ continued to be held and home valsartan which was previously tolerated was restarted upon discharge to home. Patient was found to have TSH low at 0.02 multiple times. T4 was initially elevated at 11.7 which trended down. However, repeat TSH continued to be <0.02. Methimazole was started for hyperthyroidism and increased from daily to TID. Renal artery ultrasound was recommended by nephrology to evaluate for renal artery stenosis. Renal artery ultrasound showed left main renal artery not evaluated. Right main renal artery was tortuous and visualized in segments. No sonographically significant stenosis identified. Due to this study's limitation, MRA or CTA was recommended, however, was held off in light of patient's VALDO of 1.6-2. VALDO was treated with gentle hydration with improvement. Patient was also found to have multiple pulmonary nodules with sizes of 30x35 in right lower lobe and 27x40 in left lower lobe. Patient had biopsy on 01/01 and tolerated procedure without any complications. Patient will be reported results upon following up [facility]. We are still awaiting renin level and will let Ms. Shin know about this value upon appointment with Dr. Lazcano. Patient was found to be medically stable and ready for discharge. Patient was told to follow up with Dr. Lazcano as her new primary care doctor on Sunday at 2:30 PM, Dr. Oneal, endocrinology within 1 month, and Dr. Jackman, nephrology within 1 week. Patient will have repeat T4 and TSH outpatient. Patient was tapered off of tapazole 2 years ago and it is unclear why. Patient will be continued on tapazole 5 mg TID. Patient was told to follow up with [facility] pulmonary clinic for further evaluation of pulmonary nodules outpatient. In addition, patient will continue be worked up for possible pheochromocytoma which could be a cause of her resistent hypertension, hypokalemia. Patient was told to take all home medications as prescribed. Patient was told to return to the emergency department if she had any new or concerning symptoms. This is a brief summary of the events that occurred during this hospital visit. For more information, please refer to hospital documentation. - Date & Time of H&P Date of H&P: 12/27/18 Time of H&P: 05:00 Discharge Exam - Head Exam Head Exam: ATRAUMATIC, NORMAL INSPECTION, NORMOCEPHALIC - Eye Exam Eye Exam: EOMI, PERRL - Respiratory Exam Respiratory Exam: Clear to PA & Lateral, NORMAL BREATHING PATTERN - Cardiovascular Exam Cardiovascular Exam: REGULAR RHYTHM, RRR - GI/Abdominal Exam GI & Abdominal Exam: Normal Bowel Sounds, Soft. absent: Tenderness - Extremities Exam Extremities exam: full ROM - Neurological Exam Neurological exam: Alert, CN II-XII Intact, Oriented x3 - Psychiatric Exam Psychiatric exam: Normal Affect, Normal Mood - Skin Skin Exam: Dry, Intact, Normal Color Discharge Plan - Discharge Medications Prescriptions: amLODIPine [Norvasc] 10 mg PO DAILY 14 Days #14 tab Aspirin [Aspirin Chewable] 81 mg PO DAILY 14 Days #14 chew Atorvastatin [Lipitor] 40 mg PO DIN 14 Days #14 tab cloNIDine [Catapres] 0.2 mg PO Q8 14 Days #42 tab Ergocalciferol [Drisdol 50,000 Intl Units Cap] 1 cap PO Q7D 14 Days #2 cap hydrALAZINE [Apresoline] 25 mg PO Q8H 14 Days #42 tab methIMAzole [Tapazole] 5 mg PO TID #90 tab Metoprolol Tartrate [Lopressor] 75 mg PO Q12 14 Days #28 tab Valsartan [Diovan] 320 mg PO DAILY 14 Days #14 tab - Follow Up Plan Condition: STABLE Disposition: HOME/ ROUTINE Instructions: Heart Healthy Diet, Stroke (DC), Hyperthyroidism (Overactive Thyroid) (DC), High Blood Pressure Emergencies Additional Instructions: * Please follow up with Dr. Lazcano at [facility] on Sunday at 2:30 PM. * Please follow up with endocrinology, Dr. Oneal, for further treatment of your hyperthyroidism. * Please follow up with [facility] Pulmonary Clinic for further evaluation of pulmonary nodules and for follow up Chest CT. * Please take all your medications as prescribed. * If you have any new or concerning symptoms, please return to emergency department. * Your labs suggest that your thyroid is overactive, which is called hyperthyroidism. You have been prescribed a medication, methimazole, to treat this; please take as prescribed. Please follow up with an Associate Manager (referral for one has been provided) within 1 month for further management and for refills of your medication. * Your vitamin D was found to be low - please take over the counter vitamin D daily. Referrals: [facility] [Outside] [facility] at [facility] [Outside] [facility] Pulmonary Clinic [Outside] Luca Taveras MD [Staff Provider] - <Robles Hudson - Last Filed: 01/03/19 07:44> Provider - Provider Date of Admission: 12/27/18 01:43 Attending physician: Robles Hudson MD Consults: 12/27/18 09:02 Neurology Consult Routine Comment: Consulting Provider: Curtis Stone Consulting Physician: Curtis Stone Reason for Consult: slurred speech 12/27/18 12:20 Case Management Referral Routine Comment: Physician Instructions: Reason For Exam: Reason for Referral: Discharge Planning 12/27/18 17:07 Radiology Consult Routine Comment: Consulting Provider: Gildardo Rosales Consulting Physician: Gildardo Rosales Reason for Consult: RLL lung mass - biopsy 12/29/18 15:29 Nephrology Consult Routine Comment: Consulting Provider: Nida Jackman Consulting Physician: Nida Jackman Reason for Consult: severely uncontrolled HTN with multiple antihypertensive medication 01/01/19 07:32 Physiatry Consult Routine Comment: Consulting Provider: Mickie Kovacs Consulting Physician: Mickie Kovacs Reason for Consult: hyperthyroidism Hospital Course - Lab Results Lab Results: Micro Results 12/27/18 04:30 Nose MRSA Culture (Admit) - Final MRSA NOT DETECTED Most Recent Lab Values WBC 8.3 10^3/uL (4.5-11.0) 12/31/18 06:30 RBC 5.26 10^6/uL (3.5-6.1) 12/31/18 06:30 Hgb 12.3 g/dL (12.0-16.0) 12/31/18 06:30 Hct 38.9 % (36.0-48.0) 12/31/18 06:30 MCV 74.0 fl (80.0-105.0) L 12/31/18 06:30 MCH 23.4 pg (25.0-35.0) L 12/31/18 06:30 MCHC 31.6 g/dl (31.0-37.0) 12/31/18 06:30 RDW 15.7 % (11.5-14.5) H 12/31/18 06:30 Plt Count 370 10^3/uL (120.0-450.0) 12/31/18 06:30 MPV 10.3 fl (7.0-11.0) 12/31/18 06:30 Neut % (Auto) 79.6 % (50.0-68.0) H 12/27/18 06:55 Lymph % (Auto) 13.7 % (22.0-35.0) L 12/27/18 06:55 Esmeralda % (Auto) 6.4 % (1.0-6.0) H 12/27/18 06:55 Eos % (Auto) 0.2 % (1.5-5.0) L 12/27/18 06:55 Baso % (Auto) 0.1 % (0.0-3.0) 12/27/18 06:55 Lymph # (Auto) 1.8 (1.2-3.4) 12/27/18 06:55 Esmeralda # (Auto) 0.8 (0.1-0.6) H 12/27/18 06:55 Eos # (Auto) 0.0 (0.0-0.7) 12/27/18 06:55 Baso # (Auto) 0.01 K/mm3 (0.0-2.0) 12/27/18 06:55 Absolute Neuts (auto) 10.39 (1.4-6.5) H 12/27/18 06:55 PT 13.7 SECONDS (9.4-12.5) H 12/26/18 23:25 INR 1.23 12/26/18 23:25 APTT 40.8 Seconds (26.9-38.3) H 12/26/18 23:25 Sodium 138 mmol/L (132-148) 01/02/19 07:40 Potassium 4.0 mmol/L (3.6-5.0) 01/02/19 07:40 Chloride 107 mmol/L (98-107) 01/02/19 07:40 Carbon Dioxide 24 mmol/L (21-33) 01/02/19 07:40 Anion Gap 11 (10-20) 01/02/19 07:40 BUN 25 mg/dL (7-21) H 01/02/19 07:40 Creatinine 1.6 mg/dl (0.7-1.2) H 01/02/19 07:40 Est GFR ( Amer) 39 01/02/19 07:40 Est GFR (Non-Af Amer) 32 01/02/19 07:40 POC Glucose (mg/dL) 122 mg/dL (65-110) H 12/26/18 23:09 Random Glucose 78 mg/dL (70-110) 01/02/19 07:40 Hemoglobin A1c 5.3 % (4.2-6.5) 12/27/18 08:30 Calcium 9.0 mg/dL (8.4-10.5) 01/02/19 07:40 Phosphorus 4.6 mg/dL (2.5-4.5) H 01/02/19 07:40 Magnesium 2.4 mg/dL (1.7-2.2) H 01/02/19 07:40 Total Bilirubin 0.3 mg/dL (0.2-1.3) 01/02/19 07:40 AST 32 U/L (14-36) 01/02/19 07:40 ALT 31 U/L (7-56) 01/02/19 07:40 Alkaline Phosphatase 77 U/L (38-126) 01/02/19 07:40 Lactate Dehydrogenase 641 U/L (333-699) 12/26/18 23:25 Total Creatine Kinase 47 U/L (35-230) 12/26/18 23:25 Troponin I 0.03 ng/mL 12/26/18 23:25 Total Protein 6.7 g/dL (5.8-8.3) 01/02/19 07:40 Albumin 3.4 g/dL (3.0-4.8) 01/02/19 07:40 Globulin 3.3 gm/dL 01/02/19 07:40 Albumin/Globulin Ratio 1.0 (1.1-1.8) L 01/02/19 07:40 Triglycerides 78 mg/dL (35-160) 12/26/18 23:25 Cholesterol 205 mg/dL (130-200) H 12/26/18 23:25 LDL Cholesterol Direct 117 mg/dL (0-129) 12/26/18 23:25 HDL Cholesterol 46 mg/dL (29-60) 12/26/18 23:25 Renin 0.74 ng/mL/h (0.25-5.82) 12/30/18 12:00 Aldosterone 19 ng/dL 12/30/18 12:00 Aldosterone/Renin Ratio 25.7 Ratio (0.9-28.9) 12/30/18 12:00 Vitamin B12 240 pg/mL (239-931) 12/27/18 08:30 25-OH Vitamin D Total < 12.8 NG/ML (30.0-100.0) L 12/27/18 08:30 Folate > 20.0 ng/mL 12/27/18 08:30 Homocysteine 9.8 umol/L (4.7-12.6) 12/27/18 08:30 Free T4 1.56 ng/dL (0.78-2.19) 01/01/19 08:47 Thyroxine (T4) 8.4 ug/dL (5.5-11.0) 01/02/19 07:00 Total T3 1.43 ng/mL (0.97-1.69) 12/28/18 07:00 TSH 3rd Generation < 0.02 mIU/mL (0.46-4.68) L 01/02/19 07:00 Urine Color Yellow (YELLOW) 12/27/18 04:30 Urine Appearance Clear (CLEAR) 12/27/18 04:30 Urine pH 7.0 (4.7-8.0) 12/27/18 04:30 Ur Specific [place] 1.010 (1.005-1.035) 12/27/18 04:30 Urine Protein 30 mg/dL (<30 mg/dL) H 12/27/18 04:30 Urine Glucose (UA) Negative mg/dL (NEGATIVE) 12/27/18 04:30 Urine Ketones Negative mg/dL (NEGATIVE) 12/27/18 04:30 Urine Blood Trace-lysed (NEGATIVE) H 12/27/18 04:30 Urine Nitrate Negative (NEGATIVE) 12/27/18 04:30 Urine Bilirubin Negative (NEGATIVE) 12/27/18 04:30 Urine Urobilinogen 0.2 E.U./dL (<1 E.U./dL) 12/27/18 04:30 Ur Leukocyte Esterase Negative Racheal/uL (NEGATIVE) 12/27/18 04:30 Urine RBC 0 - 2 /hpf (0-2) 12/27/18 04:30 Urine WBC 0 - 2 /hpf (0-6) 12/27/18 04:30 Ur Epithelial Cells 1 - 3 /hpf (0-5) 12/27/18 04:30 Urine Bacteria Rare /hpf (NONE) 12/27/18 04:30 Ur Random Creatinine 55 mg/dL 01/01/19 16:52 U Random Total Protein 127 mg/g creat (21-161) 01/01/19 02:00 Ur Random Sodium 15 meq/L 01/01/19 16:52 Ur Random Urea Nitrogn 256 mg/dL 01/01/19 16:52 Urine Total Volume 1.5 mg/dL 01/01/19 02:00 Microalb/Creat Ratio 19 (<30) 01/01/19 02:00 Attending/Attestation - Attestation I have personally seen and examined this patient.: Yes I have fully participated in the care of the patient.: Yes I have reviewed all pertinent clinical information, including history, physical exam and plan: Yes Notes (Text): 01/03/19 07:39 Medical record note made by the resident after discussion with my direction and input after the patient was personally seen and examined by me. I have reviewed the chart and agree that the record accurately reflects by personal performance of the history, physical exam, data review, and medical decision-making, in the course for the patient. I have also personally directed the plan of care. 63 year old female with PMH of hypertension , noncompliance with medication medications was admitted with slurred speech and hypertensive urgency. CT head showed chronic bilateral subcortical lacunar infarcts, not acute findings. MRI brain showed acute or subacute left lexa infarct. MRA head/neck showed ?stenosis distal bilateral vertebral arteries. CTA head/neck showed 40% proximal right ICA stenosis. She was initially started on nicardipine drip initially. Hypertensive medications are adjusted. Blood pressure is better controlled with Metoprolol/clonidine/amlodipine.Diovon and hydralazine. Patient was evaluated by endocrinology for hyperthyroidism and medications are adjusted. Patient was also found to have 30 x 35 mm smooth contoured mass at right lung base, heavily calcified 27 x 40 mm at the left lung base and multiple 5 mm bilateral nodules suspicious for metastatic disease. Findings were discussed with the patient .Patient underwent lung biopsy -04/16.The results are pending at the time of discharge. Patient will follow up with [facility] Clinic, Pulmonology, endocrinology and Nephrology. Issue of compliance with medications was also discussed. Issue of follow up of lung biopsies was also discussed. Management plan was discussed in detail with patient. Education was provided.
[2019-01-01] MEDS: Sodium Chloride 0.45% 1,000 ML IV SCH (03:01)
[2019-01-01] MEDS ORDERED: Potassium Chloride 20 mEq ER Tab PO STA (06:54)
[2019-01-01] MEDS: methIMAzole 5 MG TAB PO SCH ×2 (10:20→15:05)
[2019-01-01 10:23] LABS: FREE T4 1.56 ng/dL (0.78-2.19)
--- NOTE | 2019-01-01 12:50 | CP.PCM.PN ---
<Alfred Madsen - Last Filed: 01/01/19 12:39> Subjective - Date & Time of Evaluation Date of Evaluation: 01/01/19 Time of Evaluation: 12:39 - Subjective Subjective: Alfred Madsen, PGY-1, Internal Medicine Progress Note for Dr. Hudson Patient was seen and evaluated at bedside. Patient had no acute overnight events. Patient denies any current symptoms at this time. Patient is agreeable to biopsy of lungs today at 3 pm. 12-point ROS was unremarkable except for what was mentioned above. Objective - Vital Signs/Intake and Output Vital Signs (last 24 hours): Temp Pulse Resp BP Pulse Ox 97.8 F 62 18 152/79 H 99 01/01/19 12:00 01/01/19 12:00 01/01/19 12:00 01/01/19 12:00 01/01/19 06:00 Intake and Output: 01/01/19 01/01/19 06:59 18:59 Intake Total 1700 Output Total 0 Balance 1700 - Medications Medications: Current Medications Amlodipine Besylate (Norvasc) 10 mg PO DAILY [facility] Last Admin: 01/01/19 10:27 Dose: 10 mg Aspirin (Aspirin Chewable) 81 mg PO DAILY [facility] Last Admin: 01/01/19 10:19 Dose: 81 mg Atorvastatin Calcium (Lipitor) 40 mg PO DIN [facility] Last Admin: 12/31/18 17:36 Dose: 40 mg Clonidine HCl (Catapres) 0.2 mg PO Q8 [facility] Ergocalciferol (Drisdol 50,000 Intl Units Cap) 1 cap PO Q7D [facility] Last Admin: 12/30/18 18:05 Dose: 1 cap Heparin Sodium (Porcine) (Heparin) 5,000 units SC Q8 [facility]; Protocol Last Admin: 01/01/19 05:00 Dose: Not Given Hydralazine HCl (Apresoline) 25 mg PO Q8H [facility] Last Admin: 01/01/19 10:17 Dose: 25 mg Hydrochlorothiazide (Hydrodiuril) 25 mg PO DAILY [facility] Last Admin: 12/31/18 09:35 Dose: 25 mg Sodium Chloride (Sodium Chloride 0.45%) 1,000 mls @ 75 mls/hr IV .[id number] [facility] Stop: 01/02/19 13:49 Last Admin: 01/01/19 03:01 Dose: Not Given Methimazole (Tapazole) 5 mg PO DAILY [facility] Last Admin: 01/01/19 10:20 Dose: 5 mg Metoprolol Tartrate (Lopressor) 75 mg PO Q12 [facility] Last Admin: 01/01/19 10:27 Dose: 75 mg Saliva Substitute (Saliva Substitute) 0 ml PO TID PRN PRN Reason: Dry mouth Last Admin: 12/28/18 14:05 Dose: 1 ml Spironolactone (Aldactone) 25 mg PO DAILY [facility] Last Admin: 01/01/19 10:18 Dose: 25 mg Valsartan (Diovan) 320 mg PO DAILY [facility] Last Admin: 12/31/18 09:34 Dose: 320 mg - Labs Labs: 12/31/18 06:30 01/01/19 05:55 PT 13.7 SECONDS (9.4-12.5) H 12/26/18 23:25 INR 1.23 12/26/18 23:25 APTT 40.8 Seconds (26.9-38.3) H 12/26/18 23:25 - Constitutional Appears: Well, Non-toxic, No Acute Distress - Head Exam Head Exam: ATRAUMATIC, NORMAL INSPECTION, NORMOCEPHALIC - Eye Exam Eye Exam: EOMI, PERRL - Respiratory Exam Respiratory Exam: Clear to Ausculation Bilateral, NORMAL BREATHING PATTERN - Cardiovascular Exam Cardiovascular Exam: REGULAR RHYTHM, RRR, Murmur (systolic ejection murmur) - GI/Abdominal Exam GI & Abdominal Exam: Soft, Normal Bowel Sounds. absent: Tenderness - Extremities Exam Extremities Exam: Full ROM. absent: Pedal Edema - Neurological Exam Neurological Exam: Alert, Awake, CN II-XII Intact, Oriented x3 - Skin Skin Exam: Dry, Intact Assessment and Plan (1) Acute ischemic stroke Status: Acute (2) Hypertensive emergency Status: Acute - Assessment and Plan (Free Text) Assessment: 63 year old female with a PMHx of uncontrolled HTN non-adherent to home medications due to insurance issues who presented to the ED for slurred speech. Systolic blood pressure was found to be in the 200's range and MRI showed acute lexa infarct Plan: Uncontrolled hypertension -Blood pressure improved today at 152/79. However, blood pressure continues to be elevated at night. -Stopped valsartan and HCTZ. Continue with norvasc, lopressor Q12, aldactone, and clonidine Q8. Started standing dose of hydralazine of 25 mg Q8. -Renal artery ultrasound: no left main renal artery not evaluated. right main renal artery is tortuous and visualized in segments. no sonographically significant stenosis identified. Due to this study's limitation, MRA or CTA was recommended, however, will hold off for now in light of patient's VALDO. -Will follow up renin and aldosterone levels as patient was hypokalemic on admission Acute left lexa infarct -MRI showed left lexa infarct -MRA of head was unremarkable -Head and neck CTA showed 40% stenosis right proximal aspect of right internal carotid artery -Not a candidate for tPA -Continue aspirin and lipitor -Patient has steady gait walking and has done well with physical therapy. Patient's speech and swallow has been improving as per speech therapist. -Continue with physical therapy and speech and swallow evaluation follow up -Continue with aspiration precautions VALDO -Cr: 2 from 1.6 -NS at 75 cc/hr -Likely 2/2 to hypertension vs. contrast patient received from abdominal and pelvis CT Pulmonary nodules -Chest CT showed 30x35 mm RLL. 27x40 mass in LLL. -Abdominal CT 12/29: no acute intraabdominal findings -Patient is agreeable to biopsy with IR and will have biopsy at 3 PM today. Diastolic CHF -Echocardiogram: LVEF: 64%, moderate diastolic dysfunction -Continue with lopressor Hyperthyroidism -TSH low at 0.02 and T4 increased to 11.7 -Repeat TSH was still <0.02 -Continue methimazole 5 mg daily Vitamin D deficiency -Vitamin D was <12.8 on this admission -Continue with ergocalciferol 1 tab Q7D Vitamin B12 deficiency -Vitamin B12 was within normal limits -Continue with Vitamin B12 supplementation GI prophylaxis: protonix 40 mg daily DVT prophylaxis: held due to patient's procedure Patient plan was discussed with attending. <Robles Hudson - Last Filed: 01/02/19 14:17> Objective - Vital Signs/Intake and Output Vital Signs (last 24 hours): Temp Pulse Resp BP Pulse Ox 97.8 F 54 L 18 129/69 95 01/02/19 12:00 01/02/19 12:00 01/02/19 12:00 01/02/19 12:00 01/02/19 06:00 Intake and Output: 01/02/19 01/02/19 06:59 18:59 Intake Total 2040 Output Total 601 Balance 1439 - Medications Medications: Current Medications Acetaminophen (Tylenol 325mg Tab) 650 mg PO Q4 PRN PRN Reason: Pain, Mild (1-3) Amlodipine Besylate (Norvasc) 10 mg PO DAILY [facility] Last Admin: 01/02/19 10:24 Dose: 10 mg Aspirin (Aspirin Chewable) 81 mg PO DAILY [facility] Last Admin: 01/02/19 10:16 Dose: 81 mg Atorvastatin Calcium (Lipitor) 40 mg PO DIN [facility] Last Admin: 01/01/19 18:49 Dose: 40 mg Clonidine HCl (Catapres) 0.2 mg PO Q8 [facility] Last Admin: 01/02/19 06:31 Dose: 0.2 mg Ergocalciferol (Drisdol 50,000 Intl Units Cap) 1 cap PO Q7D [facility] Last Admin: 12/30/18 18:05 Dose: 1 cap Heparin Sodium (Porcine) (Heparin) 5,000 units SC Q8 [facility]; Protocol Last Admin: 01/01/19 05:00 Dose: Not Given Hydralazine HCl (Apresoline) 25 mg PO Q8H [facility] Last Admin: 01/02/19 10:16 Dose: 25 mg Methimazole (Tapazole) 5 mg PO TID [facility] Last Admin: 01/02/19 10:23 Dose: 5 mg Metoprolol Tartrate (Lopressor) 75 mg PO Q12 [facility] Last Admin: 01/02/19 10:17 Dose: 75 mg Ondansetron HCl (Zofran Inj) 4 mg IVP Q6H PRN PRN Reason: Nausea/Vomiting Saliva Substitute (Saliva Substitute) 0 ml PO TID PRN PRN Reason: Dry mouth Last Admin: 12/28/18 14:05 Dose: 1 ml Spironolactone (Aldactone) 25 mg PO DAILY [facility] Last Admin: 01/02/19 10:15 Dose: 25 mg Valsartan (Diovan) 320 mg PO DAILY [facility] Last Admin: 12/31/18 09:34 Dose: 320 mg - Labs Labs: 12/31/18 06:30 01/02/19 07:40 PT 13.7 SECONDS (9.4-12.5) H 12/26/18 23:25 INR 1.23 12/26/18 23:25 APTT 40.8 Seconds (26.9-38.3) H 12/26/18 23:25 Attending/Attestation - Attestation I have personally seen and examined this patient.: Yes I have fully participated in the care of the patient.: Yes I have reviewed all pertinent clinical information, including history, physical exam and plan: Yes Notes (Text): 01/02/19 14:09 Patient was seen and examined with medical laboratory scientist. 63 year old female with past medical history of hypertension , noncompliance with medication medications was admitted with slurred speech and hypertensive urgency. She was initially started on nicardipine drip initially. CT head showed chronic bilateral subcortical lacunar infarcts, not acute findings. MRI brain showed acute or subacute left lexa infarct. MRA head/neck showed ?stenosis distal bilateral vertebral arteries. CTA head/neck showed 40% proximal right ICA stenosis. Neurology is following. Patient is on aspirin and statin. Blood pressure is better controlled but creatinin is increased to 2.0.We will hold HCTZ And Diovon.We will monitor BUN and creatinin. Patient was also found to have 30 x 35 mm smooth contoured mass at right lung base, heavily calcified 27 x 40 mm at the left lung base and multiple 5 mm bilateral nodules suspicious for metastatic disease. Findings were discussed with the patient .Patient was refusing biopsy initially but she is agreeable for the procedure now, she is schedule for biopsy of lesion. Management plan was discussed in detail with patient. Education was provided. 01/02/19 14:17
--- NOTE | 2019-01-01 14:07 | CP.PCM.PN ---
Subjective - Date & Time of Evaluation Date of Evaluation: 01/01/19 Time of Evaluation: 14:06 - Subjective Subjective: renal note 63 yr old female with long standing htn > 10 years is admtited with acute cva. She has been on multiple meds with poorely controlled bp and usually runs around 170s. no other medical hx. recentl lost insurance hence unable to get meds. meds reviewed complete ros is negative labs reviewed social hx non smoker no alcohol fam hx negative for kidney disease, reports htn in all family members Sub: pt feels in usual health. no complaints. denies CP/SOB/urine complaints. oral intake good. vitals reviewed heent normal op moist no jvd s1s2 present. sm+ at aortic area nor foreign distress abd soft nt nd bs + skin normal ao times 3 cooperative A&P: htn, uncontrolled acute cva hyypokalemia VALDO likely contrast induced and hemodynamic due to Bp changes Obesity Hyperthyroidism moderate pulmonary HTN and moderate to severe LVH Vit D def ? mets to lung Recommendations: No acute need for renal replacement therapy at this time. Hypertension control with meds as ordered. Maintain hemodynamics stable. Avoid hypotension. Patient on losartan. target gradual decrease in BP considering CVA Monitor Input/Output, daily weights and renal function with basic metabolic panel continue with vit D supplements need control of hyperthyroidism for better htn control. endocrine eval requested planned for lung nodule biopsy can d/c IVF from renal perspective Secondary HTN work up with plasma renin/aldosterone, plasma metanephrine and renal artery Doppler to r/o renal artery stenosis Dose meds/antibiotics for reduced GFR. Avoid fleets enema/magnesium based laxatives. Avoid nephrotoxins/NSAIDs/ iodinated contrast (unless needed emergently) Glycemic control, renal diet. Further work up for as per primary team. Thanks for allowing me to participate in care of your patient. Will follow patient with you. Please call if any Qs Dr Jonh Arora Office: [phone] Objective - Vital Signs/Intake and Output Vital Signs (last 24 hours): Temp Pulse Resp BP Pulse Ox 97.8 F 62 18 152/79 H 99 01/01/19 12:00 01/01/19 12:00 01/01/19 12:00 01/01/19 12:00 01/01/19 06:00 Intake and Output: 01/01/19 01/01/19 06:59 18:59 Intake Total 1700 Output Total 0 Balance 1700 - Medications Medications: Current Medications Amlodipine Besylate (Norvasc) 10 mg PO DAILY [facility] Last Admin: 01/01/19 10:27 Dose: 10 mg Aspirin (Aspirin Chewable) 81 mg PO DAILY [facility] Last Admin: 01/01/19 10:19 Dose: 81 mg Atorvastatin Calcium (Lipitor) 40 mg PO DIN [facility] Last Admin: 12/31/18 17:36 Dose: 40 mg Clonidine HCl (Catapres) 0.2 mg PO Q8 [facility] Ergocalciferol (Drisdol 50,000 Intl Units Cap) 1 cap PO Q7D [facility] Last Admin: 12/30/18 18:05 Dose: 1 cap Heparin Sodium (Porcine) (Heparin) 5,000 units SC Q8 [facility]; Protocol Last Admin: 01/01/19 05:00 Dose: Not Given Hydralazine HCl (Apresoline) 25 mg PO Q8H [facility] Last Admin: 01/01/19 10:17 Dose: 25 mg Hydrochlorothiazide (Hydrodiuril) 25 mg PO DAILY [facility] Last Admin: 12/31/18 09:35 Dose: 25 mg Sodium Chloride (Sodium Chloride 0.45%) 1,000 mls @ 75 mls/hr IV .[id number] [facility] Stop: 01/02/19 13:49 Last Admin: 01/01/19 03:01 Dose: Not Given Methimazole (Tapazole) 5 mg PO TID [facility] Metoprolol Tartrate (Lopressor) 75 mg PO Q12 [facility] Last Admin: 01/01/19 10:27 Dose: 75 mg Saliva Substitute (Saliva Substitute) 0 ml PO TID PRN PRN Reason: Dry mouth Last Admin: 12/28/18 14:05 Dose: 1 ml Spironolactone (Aldactone) 25 mg PO DAILY [facility] Last Admin: 01/01/19 10:18 Dose: 25 mg Valsartan (Diovan) 320 mg PO DAILY [facility] Last Admin: 12/31/18 09:34 Dose: 320 mg - Labs Labs: 12/31/18 06:30 01/01/19 05:55 PT 13.7 SECONDS (9.4-12.5) H 12/26/18 23:25 INR 1.23 12/26/18 23:25 APTT 40.8 Seconds (26.9-38.3) H 12/26/18 23:25
--- NOTE | 2019-01-01 14:17 | CP.PCM.CON ---
History of Present Illness - History of Present Illness History of Present Illness: Endocrine Service Consult Note for Dr. Fermín Reyes, PGY-3 Consulted for: suppressed TSH and elevated Total T4, concern for hyperthyroidism This is a 63yo F with PMH of HTN requiring multiple medications for management, and recent non-compliance with medications due to loss of insurance, who presented for slurred speech x3 days, and was found to have an acute pontine infarct. Endocrine was consulted due to concern for hyperthyroidism, given 2x suppressed TSH and mildly elevated total T4. As per patient, has been previously diagnosed with hyperthyroidism 3 years ago, while being evaluated for pre-op clearance. She reports that she was found to have thyroid nodules on US, but biopsy obtained was reported as benign. She reports she was started on BID tapazole, but was tapered off within 2 weeks. Otherwise not on medications for thyroid, and denies any family hx of thyroid disease. Denies overt symptoms of hyperthyroidism, including weight loss, palpitations, heat intolerance, diarrhea, diaphoresis, anxiety. Denies any other current symptoms, including vision changes, headache, chest pain, shortness of breath, nausea, emesis. Denies preceding illness prior to thyroid condition 3 yrs ago, and no illness prior to this presentation. 12-system ROS reviewed and negative, except as above. PMH: as above PSH: unspecified prior surgery, thyroid bx Fam Hx: denies HTN or thyroid fam hx Soc Hx: denies tobacco, alcohol, illicits PMD: none currently, lost PMD due to loss of insurance several months ago Review of Systems - Review of Systems All systems: reviewed and no additional remarkable complaints except (as per HPI) Past Patient History - Infectious Disease Hx of Infectious Diseases: None - Tetanus Immunizations Tetanus Immunization: Unknown - Past Medical History & Family History Past Medical History?: Yes - Past Social History Smoking Status: Never Smoked Chewing Tobacco Use: No Cigar Use: No Alcohol: None Drugs: Denies Domestic Violence: Negative - CARDIAC Hx Cardiac Disorders: Yes Hx Hypertension: Yes - PULMONARY Hx Respiratory Disorders: No - NEUROLOGICAL Hx Neurological Disorder: No - HEENT Hx HEENT Problems: No - RENAL Hx Chronic Kidney Disease: No - ENDOCRINE/METABOLIC Hx Endocrine Disorders: No - HEMATOLOGICAL/ONCOLOGICAL Hx Blood Transfusions: No Hx Blood Transfusion Reaction: No - INTEGUMENTARY Hx Dermatological Problems: No - MUSCULOSKELETAL/RHEUMATOLOGICAL Hx Musculoskeletal Disorders: No Hx Falls: No Other/Comment: BL Knee replacement - GASTROINTESTINAL Hx Gastrointestinal Disorders: No - GENITOURINARY/GYNECOLOGICAL Hx Genitourinary Disorders: No - PSYCHIATRIC Hx Psychophysiologic Disorder: No - SURGICAL HISTORY Hx Surgeries: No - ANESTHESIA Hx Anesthesia Reactions: No Hx Malignant Hyperthermia: No Meds Home Medications: Home Medication List Medication Instructions Recorded Confirmed Type methIMAzole [Tapazole] 5 mg PO TID #90 tab 01/01/19 Rx Allergies/Adverse Reactions: Allergies Allergy/AdvReac Type Severity Reaction Status Date / Time No Known Allergies Allergy Verified 12/26/18 23:16 - Medications Medications: Current Medications Amlodipine Besylate (Norvasc) 10 mg PO DAILY [facility] Last Admin: 01/01/19 10:27 Dose: 10 mg Aspirin (Aspirin Chewable) 81 mg PO DAILY [facility] Last Admin: 01/01/19 10:19 Dose: 81 mg Atorvastatin Calcium (Lipitor) 40 mg PO DIN [facility] Last Admin: 12/31/18 17:36 Dose: 40 mg Clonidine HCl (Catapres) 0.2 mg PO Q8 [facility] Ergocalciferol (Drisdol 50,000 Intl Units Cap) 1 cap PO Q7D [facility] Last Admin: 12/30/18 18:05 Dose: 1 cap Heparin Sodium (Porcine) (Heparin) 5,000 units SC Q8 [facility]; Protocol Last Admin: 01/01/19 05:00 Dose: Not Given Hydralazine HCl (Apresoline) 25 mg PO Q8H [facility] Last Admin: 01/01/19 10:17 Dose: 25 mg Hydrochlorothiazide (Hydrodiuril) 25 mg PO DAILY [facility] Last Admin: 12/31/18 09:35 Dose: 25 mg Sodium Chloride (Sodium Chloride 0.45%) 1,000 mls @ 75 mls/hr IV .[id number] [facility] Stop: 01/02/19 13:49 Last Admin: 01/01/19 03:01 Dose: Not Given Methimazole (Tapazole) 5 mg PO TID [facility] Metoprolol Tartrate (Lopressor) 75 mg PO Q12 [facility] Last Admin: 01/01/19 10:27 Dose: 75 mg Saliva Substitute (Saliva Substitute) 0 ml PO TID PRN PRN Reason: Dry mouth Last Admin: 12/28/18 14:05 Dose: 1 ml Spironolactone (Aldactone) 25 mg PO DAILY [facility] Last Admin: 01/01/19 10:18 Dose: 25 mg Valsartan (Diovan) 320 mg PO DAILY [facility] Last Admin: 12/31/18 09:34 Dose: 320 mg Physical Exam - Constitutional Appears: Non-toxic, No Acute Distress - Head Exam Head Exam: ATRAUMATIC, NORMAL INSPECTION, NORMOCEPHALIC Additional comments: no abdon facial droop appreciated - Eye Exam Eye Exam: EOMI, Normal appearance. absent: Conjunctival injection, Scleral icterus Pupil Exam: absent: Irregular, Unequal - ENT Exam ENT Exam: Mucous Membranes Moist - Neck Exam Neck exam: Negative for: Lymphadenopathy, Tenderness, Thyromegaly (no appreciable nodules, equal size bilaterally) - Respiratory Exam Respiratory Exam: Clear to Auscultation Bilateral, NORMAL BREATHING PATTERN. absent: Accessory Muscle Use, Chest Wall Tenderness, Decreased Breath Sounds, Rales, Rhonchi, Wheezes - Cardiovascular Exam Cardiovascular Exam: REGULAR RHYTHM, RRR, +S1, +S2. absent: Bradycardia, Tachycardia, Irregular Rhythm, JVD, +S4 - GI/Abdominal Exam GI & Abdominal Exam: Normal Bowel Sounds, Soft. absent: Tenderness - Extremities Exam Extremities exam: Positive for: normal inspection. Negative for: joint swelling, pedal edema, tenderness - Neurological Exam Additional comments: awake and alert, following all commands, moving all extremities spontaneously, no appreciable abdon motor deficit - Psychiatric Exam Psychiatric exam: Normal Affect, Normal Mood - Skin Skin Exam: Dry, Intact, Normal Color, Warm Results - Vital Signs Recent Vital Signs: Last Vital Signs Temp 97.8 F 01/01/19 12:00 Pulse 62 01/01/19 12:00 Resp 18 01/01/19 12:00 BP 152/79 H 01/01/19 12:00 Pulse Ox 99 01/01/19 06:00 - Labs Result Diagrams: 12/31/18 06:30 01/01/19 05:55 Labs: Laboratory Results - last 24 hr 01/01/19 01/01/19 05:55 08:47 Sodium 137 Potassium 3.5 L Chloride 105 Carbon Dioxide 26 Anion Gap 10 BUN 33 H Creatinine 2.0 H Est GFR ( Amer) 30 Est GFR (Non-Af Amer) 25 Random Glucose 97 Calcium 9.0 Free T4 1.56 Thyroxine (T4) 9.6 Assessment & Plan - Assessment and Plan (Free Text) Assessment: This is a 63yo F with PMH of HTN requiring multiple medications for management, and recent non-compliance with medications due to loss of insurance, who presented for slurred speech x3 days, and was found to have an acute pontine infarct 2/2 hypertensive emergency. Endocrine was consulted for suspected hyperthyroidism. Plan: 1) Hypertensive emergency 2) acute pontine infarct 3) Uncontrolled HTN 2/2 medication noncompliance (due to insurance loss) 4) Hx of nodular thyroid, hyperthyroidism 3 yr ago 5) RLL lung mass on imaging -Unlikely thyroid is driving HTN, given lack of other hyperthyroid symptoms, not tachycardic, etc -TSH suppresed, mildly elevated total T4, but free T4 and total T3 wnl -Unclear why patient was tapered off of tapazole after 2 weeks 3 yr ago, not optimal management Increased tapazole to 5mg TID, script provided, will need to continue on discharge Will need to follow up with Endocrine after discharge, referral for Dr. Oneal provided -Renal US reviewed, less likely DARREL but cannot rule out since not completely visualized, and current VALDO makes CTA/MRA assessment not ideal at this time -Given persistence of HTN despite being on multiple antiHTN agents, and adrenal hypertrophy on imaging, need to r/o pheo, metanephrines pending Case reviewed and discussed in detail with attending, Dr. Kovacs. Further recs as per attending. Plan discussed with primary team.
[2019-01-01 17:10] LABS: CREATININE,RANDOM URINE 55 mg/dL
[2019-01-01] MEDS ORDERED: Midazolam 2 MG/2 ML VIAL ONE ×2 (17:19→17:45)
[2019-01-01] MEDS ORDERED: Lidocaine 1% Inj (20ml) ONE (17:19)
[2019-01-01] MEDS ORDERED: Midazolam 2 MG/2 ML VIAL IVP ONE (17:45)
--- NOTE | 2019-01-01 18:20 | CT ---
PROCEDURE: CT guided right lower lobe lung biopsy. HISTORY: 3.5 cm right lower lobe lung mass. Evaluate for malignancy PHYSICIAN(S): Gildardo Rosales MD. TECHNIQUE: The relative risks and indications of the procedure were explained to the patient and consent obtained. The patient was placed prone on the CT scanner and preliminary images through the lung bases obtained. Conscious sedation and monitoring were provided throughout the procedure by a nurse. There is a 3.5 cm noncalcified mass in the right lower lobe.. A right posterior approach was selected and the area prepped and draped in the usual sterile fashion. 1% Xylocaine was used to anesthetize the skin and soft tissues. A 19 gauge guiding needle was advanced into the 3.5 cm right lower lobe lung mass. Its position was confirmed with CT. Using coaxial technique, multiple core biopsies were obtained. The postprocedure images show no evidence of large pneumothorax or significant hemorrhage.. IMPRESSION: 1. CT-guided right lower lobe lung biopsy as described above.
--- NOTE | 2019-01-01 19:28 | CON ---
DATE OF CONSULTATION: 01/01/2019 ENDOCRINOLOGY CONSULTATION ROOM: 260. HISTORY OF PRESENT ILLNESS: This is a 63-year-old female with known history of uncontrolled hypertension, presenting here with slurred speech and evaluated to have lacunar infarctions noted by CT scan of the head and is also being referred now for Endocrine evaluation because of abnormal thyroid function studies. She admits to having had been diagnosed to have hyperthyroidism a few years ago, and briefly took Tapazole therapy as given. However, she was told that her thyroid studies normalized and was taken off the aforementioned Tapazole medications as given. PAST MEDICAL HISTORY: History of longstanding hypertension and dyslipidemia, on multiple antihypertensive medications; history of a previous CVA with no apparent residual weakness. FAMILY HISTORY: Positive for hypertension and heart disease. SOCIAL HISTORY: The patient has supportive family. No known substance use. REVIEW OF SYSTEMS: Admits to sudden onset of dizziness and lightheadedness with generalized body weakness and bifrontal headaches. No recent visual changes as noted otherwise. No chest pains, palpitations, or PND. Her oral intake has been variable with occasional dyspepsia and habitual constipation. No recent alterations of bowel and urinary patterns. PHYSICAL EXAMINATION: GENERAL: Average-built female, in no apparent distress. VITAL SIGNS: Blood pressure of 190/100, pulse of 100 beats per minute regular, temperature 98, respirations 20, height is 5 feet 4 inches, weight is 192 pounds. HEENT: Head, normocephalic. Eyes, anicteric with pink conjunctivae. Fundoscopy not possible at this time. Ears, nose, and throat, otherwise normal. NECK: Supple. Thyroid gland shows nodular thyromegaly, which is firm and nontender with no overt thyroid nodules or bruits. HEART: Hyperdynamic precordium. S1, S2 are rapid and regular. LUNGS: Clear to auscultation. ABDOMEN: Flat, soft with positive bowel sounds. EXTREMITIES: No peripheral edema. Pulses are +2 bilaterally. LABORATORY DATA: Her chemistries showed a BUN of 33, sodium 137, potassium 3.5, chloride 105, CO2 of 26, glucose 97, and creatinine 2. Her thyroid study showed a T4 of 9.6 with a TSH of less than 0.02, and a free T4 of 1.56. The initial thyroxine level was 11.7, which is high normal as noted thereof. ASSESSMENT: This is a 63-year-old female with early hyperthyroidism noted both historically, clinically and biochemically with underlying nodular goiter, presenting here with constitutional and hyperadrenergic manifestations related to the aforementioned. She also has malignant range hypertension as noted thereof, and there is always the possibility of endocrine-related hypertension and also quite remote otherwise. PLAN OF MANAGEMENT: We will modify her current medical therapy and increase the Tapazole to 5 mg p.o. t.i.d. after meals to start today as ordered. We will obtain a thyroid stimulating immunoglobulin and a thyroid peroxidase antibody to confirm and/or indicate the presence of underlying thyroid autoimmunity. We will repeat the thyroid studies and titrate her dose regimen as indicated. We will obtain serial chemistries and supplement accordingly as needed. Concur with the current workup for endocrine hypertension as noted. We will optimize her antihypertensive medications with multiple drug therapies as ordered. We will obtain serial chemistries and supplement accordingly as needed. We will follow. Mickie Kovacs MD
[2019-01-02] MEDS: Sodium Chloride 0.45% 1,000 ML IV SCH (03:05)
[2019-01-02 06:35] VITALS: RESP 18; TEMP 97.8; O2SAT 95
--- NOTE | 2019-01-02 07:45 | CP.PCM.PN ---
Subjective - Date & Time of Evaluation Date of Evaluation: 01/02/19 Time of Evaluation: 07:00 - Subjective Subjective: Endocrine Service Progress Note for Dr. Fermín Reyes, PGY-3 Patient seen and examined at bedside. No acute complaints at time of exam; sitting up and doing a crossword puzzle. No acute events overnight. Reports tolerated biopsy well. Denies chest pain, shortness of breath, palpitations, nausea, emesis, diaphoresis. Objective - Vital Signs/Intake and Output Vital Signs (last 24 hours): Temp Pulse Resp BP Pulse Ox 97.8 F 72 18 159/87 H 95 01/02/19 06:00 01/02/19 06:31 01/02/19 06:00 01/02/19 06:31 01/02/19 06:00 Intake and Output: 01/02/19 01/02/19 06:59 18:59 Intake Total 2040 Output Total 601 Balance 1439 - Medications Medications: Current Medications Acetaminophen (Tylenol 325mg Tab) 650 mg PO Q4 PRN PRN Reason: Pain, Mild (1-3) Amlodipine Besylate (Norvasc) 10 mg PO DAILY [facility] Last Admin: 01/01/19 10:27 Dose: 10 mg Aspirin (Aspirin Chewable) 81 mg PO DAILY [facility] Last Admin: 01/01/19 10:19 Dose: 81 mg Atorvastatin Calcium (Lipitor) 40 mg PO DIN [facility] Last Admin: 01/01/19 18:49 Dose: 40 mg Clonidine HCl (Catapres) 0.2 mg PO Q8 [facility] Last Admin: 01/02/19 06:31 Dose: 0.2 mg Ergocalciferol (Drisdol 50,000 Intl Units Cap) 1 cap PO Q7D [facility] Last Admin: 12/30/18 18:05 Dose: 1 cap Heparin Sodium (Porcine) (Heparin) 5,000 units SC Q8 [facility]; Protocol Last Admin: 01/01/19 05:00 Dose: Not Given Hydralazine HCl (Apresoline) 25 mg PO Q8H [facility] Last Admin: 01/02/19 03:02 Dose: 25 mg Hydrochlorothiazide (Hydrodiuril) 25 mg PO DAILY [facility] Last Admin: 12/31/18 09:35 Dose: 25 mg Sodium Chloride (Sodium Chloride 0.45%) 1,000 mls @ 75 mls/hr IV .[id number] [facility] Stop: 01/02/19 13:49 Last Admin: 01/02/19 03:05 Dose: 75 mls/hr Methimazole (Tapazole) 5 mg PO TID [facility] Last Admin: 01/01/19 15:05 Dose: 5 mg Metoprolol Tartrate (Lopressor) 75 mg PO Q12 [facility] Last Admin: 01/01/19 22:51 Dose: 75 mg Ondansetron HCl (Zofran Inj) 4 mg IVP Q6H PRN PRN Reason: Nausea/Vomiting Saliva Substitute (Saliva Substitute) 0 ml PO TID PRN PRN Reason: Dry mouth Last Admin: 12/28/18 14:05 Dose: 1 ml Spironolactone (Aldactone) 25 mg PO DAILY [facility] Last Admin: 01/01/19 10:18 Dose: 25 mg Valsartan (Diovan) 320 mg PO DAILY [facility] Last Admin: 12/31/18 09:34 Dose: 320 mg - Labs Labs: 12/31/18 06:30 01/01/19 05:55 PT 13.7 SECONDS (9.4-12.5) H 12/26/18 23:25 INR 1.23 12/26/18 23:25 APTT 40.8 Seconds (26.9-38.3) H 12/26/18 23:25 - Additional Findings Additional findings: - Constitutional Appears: Non-toxic, No Acute Distress - Head Exam Head Exam: ATRAUMATIC, NORMAL INSPECTION, NORMOCEPHALIC - Eye Exam Eye Exam: Normal appearance. absent: Conjunctival injection, Scleral icterus - ENT Exam ENT Exam: Mucous Membranes Moist - Neck Exam Neck exam: Negative for: Thyromegaly - Respiratory Exam Respiratory Exam: Clear to Auscultation Bilateral, NORMAL BREATHING PATTERN. - Cardiovascular Exam Cardiovascular Exam: RRR, +S1, +S2. - GI/Abdominal Exam GI & Abdominal Exam: Normal Bowel Sounds, Soft. absent: Tenderness - Extremities Exam Extremities exam: Positive for: normal inspection. Negative for: joint swelling, pedal edema - Neurological Exam awake and alert, following all commands, moving all extremities spontaneously, no appreciable abdon motor deficit - Psychiatric Exam Psychiatric exam: Normal Affect, Normal Mood - Skin Skin Exam: Dry, Intact, Normal Color, Warm Assessment and Plan - Assessment and Plan (Free Text) Assessment: This is a 63yo F with PMH of HTN requiring multiple medications for management, and recent non-compliance with medications due to loss of insurance, who presented for slurred speech x3 days, and was found to have an acute pontine infarct 2/2 hypertensive emergency. Endocrine was consulted for suspected hyperthyroidism. Plan: 1) acute pontine infarct 2/2 Hypertensive emergency 2) Uncontrolled HTN 2/2 medication noncompliance (due to insurance loss) 3) Hx of nodular thyroid, hyperthyroidism 3 yr ago 4) RLL lung mass on imaging, s/p biopsy -Unlikely thyroid is driving HTN, given lack of other hyperthyroid symptoms (not tachycardic, diaphoretic, etc) -TSH suppresed, repeat Total and Free T4s wnl -Unclear why patient was tapered off of tapazole after 2 weeks 3 yr prior, not optimal management Continue tapazole 5mg TID, script provided, will need to continue on discharge Will need to follow up with Endocrine after discharge, referral for Dr. Bora joseph provided -Renal US reviewed, less likely DARREL but cannot rule out since not completely visualized, and current VALDO makes CTA/MRA assessment not ideal at this time -Given persistence of HTN despite being on multiple antiHTN agents, and adrenal hypertrophy on imaging, need to r/o pheo, metanephrines pending Case reviewed and discussed in detail with attending, Dr. Kovacs. Further recs as per attending. Plan discussed with primary team.
[2019-01-02 08:04] LABS: ALBUMIN 3.4 g/dL (3.0-4.8)
--- NOTE | 2019-01-02 08:23 | RAD ---
Date of service: 01/01/2019 HISTORY: rt lung bx COMPARISON: Frontal chest radiograph 12/18/2018. Chest CT 12/27/2018. FINDINGS: LUNGS: Ovoid mass again seen the right base with calcified density unchanged at the inferior left lateral mediastinum. PLEURA: No significant pleural effusion identified, no pneumothorax apparent. CARDIOVASCULAR: Calcific atherosclerotic changes are seen related to the thoracic aorta. Stable cardiomegaly. No pulmonary vascular congestion. OSSEOUS STRUCTURES: No significant abnormalities. VISUALIZED UPPER ABDOMEN: Normal. OTHER FINDINGS: None. IMPRESSION: No acute infiltrates pleural effusion or pneumothorax bilaterally. No pulmonary vascular congestion. Cardiomegaly stable. Right basilar pulmonary mass again evident.
[2019-01-02] MEDS: methIMAzole 5 MG TAB PO SCH ×2 (10:23→15:00)
--- NOTE | 2019-01-02 14:48 | CP.PCM.PN ---
Subjective - Date & Time of Evaluation Date of Evaluation: 01/02/19 Time of Evaluation: 14:47 - Subjective Subjective: renal note 63 yr old female with long standing htn > 10 years is admtited with acute cva. She has been on multiple meds with poorely controlled bp and usually runs around 170s. no other medical hx. recentl lost insurance hence unable to get meds. meds reviewed complete ros is negative labs reviewed social hx non smoker no alcohol fam hx negative for kidney disease, reports htn in all family members Sub: pt feels in usual health. no complaints. denies CP/SOB/urine complaints. oral intake good. vitals reviewed heent normal op moist no jvd s1s2 present. sm+ at aortic area nor foreign distress abd soft nt nd bs + skin normal ao times 3 cooperative A&P: htn, better controlled acute cva hyypokalemia VALDO likely contrast induced and hemodynamic due to Bp changes Obesity Hyperthyroidism moderate pulmonary HTN and moderate to severe LVH Vit D def ? mets to lung Recommendations: No acute need for renal replacement therapy at this time. Hypertension control with meds as ordered. Maintain hemodynamics stable. Avoid hypotension. Patient on valsartan. target gradual decrease in BP considering CVA Monitor Input/Output, daily weights and renal function with basic metabolic panel continue with vit D supplements need control of hyperthyroidism for better htn control. endocrine eval requested s/p lung nodule biopsy Secondary HTN work up with plasma renin/aldosterone, plasma metanephrine and renal artery Doppler to r/o renal artery stenosis Dose meds/antibiotics for reduced GFR. Avoid fleets enema/magnesium based laxatives. Avoid nephrotoxins/NSAIDs/ iodinated contrast (unless needed emergent ly) Glycemic control, renal diet. Further work up for as per primary team. Thanks for allowing me to participate in care of your patient. Will follow patient with you. Please call if any Qs Dr Jonh Arora Office: [phone] Objective - Vital Signs/Intake and Output Vital Signs (last 24 hours): Temp Pulse Resp BP Pulse Ox 97.8 F 54 L 18 129/69 95 01/02/19 12:00 01/02/19 12:00 01/02/19 12:00 01/02/19 12:00 01/02/19 06:00 Intake and Output: 01/02/19 01/02/19 06:59 18:59 Intake Total 0 Output Total 601 Balance 1439 - Medications Medications: Current Medications Acetaminophen (Tylenol 325mg Tab) 650 mg PO Q4 PRN PRN Reason: Pain, Mild (1-3) Amlodipine Besylate (Norvasc) 10 mg PO DAILY [facility] Last Admin: 01/02/19 10:24 Dose: 10 mg Aspirin (Aspirin Chewable) 81 mg PO DAILY [facility] Last Admin: 01/02/19 10:16 Dose: 81 mg Atorvastatin Calcium (Lipitor) 40 mg PO DIN [facility] Last Admin: 01/01/19 18:49 Dose: 40 mg Clonidine HCl (Catapres) 0.2 mg PO Q8 [facility] Last Admin: 01/02/19 06:31 Dose: 0.2 mg Ergocalciferol (Drisdol 50,000 Intl Units Cap) 1 cap PO Q7D [facility] Last Admin: 12/30/18 18:05 Dose: 1 cap Heparin Sodium (Porcine) (Heparin) 5,000 units SC Q8 [facility]; Protocol Last Admin: 01/01/19 05:00 Dose: Not Given Hydralazine HCl (Apresoline) 25 mg PO Q8H [facility] Last Admin: 01/02/19 10:16 Dose: 25 mg Methimazole (Tapazole) 5 mg PO TID [facility] Last Admin: 01/02/19 10:23 Dose: 5 mg Metoprolol Tartrate (Lopressor) 75 mg PO Q12 [facility] Last Admin: 01/02/19 10:17 Dose: 75 mg Ondansetron HCl (Zofran Inj) 4 mg IVP Q6H PRN PRN Reason: Nausea/Vomiting Saliva Substitute (Saliva Substitute) 0 ml PO TID PRN PRN Reason: Dry mouth Last Admin: 12/28/18 14:05 Dose: 1 ml Spironolactone (Aldactone) 25 mg PO DAILY [facility] Last Admin: 01/02/19 10:15 Dose: 25 mg Valsartan (Diovan) 320 mg PO DAILY [facility] Last Admin: 12/31/18 09:34 Dose: 320 mg - Labs Labs: 12/31/18 06:30 01/02/19 07:40 PT 13.7 SECONDS (9.4-12.5) H 12/26/18 23:25 INR 1.23 12/26/18 23:25 APTT 40.8 Seconds (26.9-38.3) H 12/26/18 23:25
[2019-01-02 15:01] VITALS: BP 120/64; PULSE 60
--- NOTE | 2019-01-02 18:14 | PN ---
DATE: 01/02/2019 ENDO FOLLOWUP NOTE LOCATION: Room 260. SUBJECTIVE: This is a 63-year-old female presenting here with malignant range hypertensive crisis and is now being followed closely for metabolic management. She was initially hemodynamically unstable at that time and has since then improved as noted thereof. She remains clinically euthyroid but biochemically has evidence of a suppressed TSH with normal thyroxine and free T4 levels as noted and done twice. Her initial thyroxine level is 8.4 with a TSH less than 0.02 as noted thereof. We will continue the same low dose medical therapy for hyperthyroidism with Tapazole given as 5 mg t.i.d. before meals as ordered. We will obtain serial chemistries and supplement accordingly as needed. We will follow. Mickie Kovacs MD
[2019-01-02 18:17] LABS: ALDO/PRA RATIO 25.7 Ratio (0.9-28.9)
[2019-01-07 18:15] LABS: TSI <89 % baseline (<140)
--- NOTE | 2019-01-13 07:46 | PQF ---
PROVIDER RESPONSE TEXT: Patient has acute left Pontine infarct which was diagnosed on this admission. 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 REVIEWER QUERY TEXT: Conflicting Documentation Clarification A single mention or documentation of multiple diagnoses for the same clinical presentation appears in the record. Please clarify the diagnosis/diagnoses. Please also document if the condition is: -- Confirmed and current -- Confirmed, treated and resolved -- Ruled out -- Other, please specify The patient's Clinical Indicators include: We just received the lung biopsy report indicate well-differentiated "carcinoid tumor of lung, Grade 1". Please clarify if the carcinoid tumor benign or malignant? Query created by: Torrie Rolon on 01/10/2019 2:12 PM Electronically signed by: Robles Hudson MD 01/13/2019 7:44 AM
== END 2019-01-02 18:06 | disposition home or self-care (01) | DRG 45 ==
LOC: ED 23:03 → ERH 12-27 01:43 → ICU 12-27 03:24 → 2RSO 12-28 16:51 → 2RNO 12-30 09:23
PROVIDERS: ADMIT Hospitalist; ATTEND Internal Medicine
PROC: 0BBF3ZX Excision of Right Lower Lung Lobe, Percutaneous Approach, Diagnostic (ICD-10-PCS; principal; 2019-01-01 15:00)
DX: I63.9 Cerebral infarction, unspecified (principal); C7A.090 Malignant carcinoid tumor of the bronchus and lung; N17.8 Other acute kidney failure; N14.1 Nephropathy induced by other drugs, medicaments and biological substances; T50.8X5A Adverse effect of diagnostic agents, initial encounter; I11.0 Hypertensive heart disease with heart failure; I50.30 Unspecified diastolic (congestive) heart failure; I27.20 Pulmonary hypertension, unspecified; I16.1 Hypertensive emergency; R47.1 Dysarthria and anarthria; E05.20 Thyrotoxicosis with toxic multinodular goiter without thyrotoxic crisis or storm; I65.03 Occlusion and stenosis of bilateral vertebral arteries; R29.702 NIHSS score 2; E55.9 Vitamin D deficiency, unspecified; E78.5 Hyperlipidemia, unspecified; E53.8 Deficiency of other specified B group vitamins; E87.6 Hypokalemia; E66.9 Obesity, unspecified; Z68.33 Body mass index [BMI] 33.0-33.9, adult; Z96.653 Presence of artificial knee joint, bilateral; Z91.14 Patient's other noncompliance with medication regimen; Z79.82 Long term (current) use of aspirin